=== PATIENT | female | born 1985 | race Caucasian/White ===

== ENCOUNTER 2021-10-19 17:29 | Outpatient (CLI) | payer BC, SELFPAY ==
[2021-10-19 18:05] LABS: Absolute Lymphocyte Count 2.39 X10^3/uL (0.83-4.51); Absolute Neutrophil Count 3.1 X10^3/uL (2.0-7.7); Basophil# 0.08 X10^3/uL; Basophil% 1.3 % (0-1); Eosinophil# 0.13 X10^3/uL; Eosinophils% 2.1 % (0-5); Hematocrit 43.5 % (37-47); Hemoglobin 14.4 g/dL (12.0-15.0); Lymphocyte # 2.39 X10^3/ul (0.83-4.51); Lymphocyte % 39.1 % (19-41); Mean Corp Hgb Conc 33.1 g/dL (32-36); Mean Corpuscular Hgb 29.1 pg (27.0-32.0); Mean Corpuscular Volume 88.1 fL (81-99); Monocyte# 0.39 X10^3/uL; Monocyte% 6.4 % (0-10); NRBC Flagged by Analyzer 0 % (0-5); Neutrophil # 3.11 X10^3/uL (2.7-7.7); Neutrophil % 50.8 % (47-70); Platelet Count 275 K/mm3 (150-450); RBC Distribution Width CV 12.8 % (11.6-14.6); RBC Distribution Width SD 41.3 fl (35.1-43.9); Red Blood Count 4.94 M/mm3 (4.2-5.4); White Blood Count 6.1 K/mm3 (4.4-11.0)
[2021-10-19 18:48] LABS: AST(SGOT) 21 U/L (15-37); Alanine Aminotransfer ALT/SGPT 35 U/L (13-56); Albumin, Serum 4.1 g/dL (3.2-5.0); Alkaline Phosphatase 73 U/L (45-117); Anion Gap 6 (5-15); BUN 17 mg/dL (7-18); BUN/Creat Ratio 22.6 RATIO (10-20); Calcium,Total 9.2 mg/dL (8.5-10.1); Chloride 105 mmol/L (98-107); Cholesterol 208 mg/dL (200); Creatinine, Serum 0.75 mg/dL (0.55-1.02); EST Glomerular Filtration Rate 92 mL/min (>60); Est Glom Filt Rate - Afr Amer 111 mL/min (>60); Globulin 4.2 g/dL (2.2-4.2); Glucose 93 mg/dL (74-106); High Density Lipoprotein 51 mg/dL; Potassium 3.7 mmol/L (3.5-5.1); Protein, Total 8.3 g/dL (6.4-8.2); Sodium Level 138 mmol/L (136-145); Thyroid Stim Hormone (TSH) 1.84 uIU/mL (0.358-3.74); Triglycerides 257 mg/dL; Very Low Density Lipoprotein 51 mg/dL (5-40)
== END 2021-10-19 23:59 | disposition short-term general hospital (02) ==
LOC: LAB 17:36
PROVIDERS: PCP Family Medicine; Referring Provider Family Medicine; Visit Provider Family Medicine
DX: Z00.00 Encounter for general adult medical examination without abnormal findings (principal); E03.9 Hypothyroidism, unspecified
CPT/HCPCS: 36415; 80053; 80061; 84443; 85025

== ENCOUNTER → 2022-10-26 | Outpatient (CLI) | payer BC, SELFPAY ==
[2022-11-01 10:08] LABS: Age Gdln ACOG Testing 30-65 (.)
[2022-11-01 10:51] LABS: HPV APTIMA, High Risk Negative (Negative)
[2022-11-01 17:01] LABS: HPV Reflexed? YES, CHARGE PATIENT
== END | disposition home or self-care (01) ==
PROVIDERS: PCP Family Medicine; Visit Provider Family Medicine
DX: Z12.4 Encounter for screening for malignant neoplasm of cervix (principal)
CPT/HCPCS: 87624; 88175; G0145

== ENCOUNTER → 2022-10-29 | Outpatient (CLI) | payer BC, SELFPAY ==
[2022-10-29 10:41] LABS: ALB/GLOB Ratio 0.8 RATIO (0.9-2.4); AST(SGOT) 21 U/L (15-37); Alanine Aminotransfer ALT/SGPT 33 U/L (13-56); Albumin, Serum 3.6 g/dL (3.2-5.0); Alkaline Phosphatase 81 U/L (45-117); Anion Gap 8 (5-15); BUN 13 mg/dL (7-18); BUN/Creat Ratio 16.9 RATIO (10-20); Chloride 105 mmol/L (98-107); Cholesterol 213 mg/dL (200); Creatinine, Serum 0.77 mg/dL (0.55-1.02); EST Glomerular Filtration Rate 89 mL/min (>60); Est Glom Filt Rate - Afr Amer 107 mL/min (>60); Globulin 4.4 g/dL (2.2-4.2); Glucose 98 mg/dL (74-106); High Density Lipoprotein 48 mg/dL; Potassium 3.9 mmol/L (3.5-5.1); Sodium Level 139 mmol/L (136-145); Thyroid Stim Hormone (TSH) 1.66 uIU/mL (0.358-3.74); Triglycerides 179 mg/dL; Very Low Density Lipoprotein 36 mg/dL (5-40)
== END | disposition home or self-care (01) ==
LOC: LAB 09:23
PROVIDERS: PCP Family Medicine; Visit Provider Family Medicine
DX: Z01.419 Encounter for gynecological examination (general) (routine) without abnormal findings (principal); E03.9 Hypothyroidism, unspecified
CPT/HCPCS: 36415; 80053; 80061; 84443

== ENCOUNTER → 2023-11-02 | Outpatient (CLI) | payer BC, SELFPAY ==
[2023-11-02 12:28] LABS: Absolute Lymphocyte Count 1.83 X10^3/uL (0.83-4.51); Absolute Neutrophil Count 2.8 X10^3/uL (2.0-7.7); Basophil# 0.08 X10^3/uL; Basophil% 1.5 % (0-1); Eosinophil# 0.11 X10^3/uL; Eosinophils% 2.1 % (0-5); Hematocrit 45.4 % (37-47); Hemoglobin 14.8 g/dL (12.0-15.0); Lymphocyte # 1.83 X10^3/ul (0.83-4.51); Lymphocyte % 35.3 % (19-41); Mean Corp Hgb Conc 32.6 g/dL (32-36); Mean Corpuscular Hgb 28.8 pg (27.0-32.0); Mean Corpuscular Volume 88.5 fL (81-99); Mean Platelet Vol. 9.6 fl (6.2-12.0); Monocyte# 0.36 X10^3/uL; Monocyte% 6.9 % (0-10); NRBC Flagged by Analyzer 0 % (0-5); Neutrophil # 2.79 X10^3/uL (2.7-7.7); Neutrophil % 53.8 % (47-70); Platelet Count 286 K/mm3 (150-450); RBC Distribution Width CV 12.9 % (11.6-14.6); RBC Distribution Width SD 42.2 fl (35.1-43.9); Red Blood Count 5.13 M/mm3 (4.2-5.4); White Blood Count 5.2 K/mm3 (4.4-11.0)
[2023-11-02 13:55] LABS: AST(SGOT) 31 U/L (15-37); Alanine Aminotransfer ALT/SGPT 53 U/L (13-56); Alkaline Phosphatase 72 U/L (45-117); Anion Gap 7 (5-15); BUN 18 mg/dL (7-18); BUN/Creat Ratio 23.2 RATIO (10-20); Calcium,Total 9.4 mg/dL (8.5-10.1); Chloride 105 mmol/L (98-107); Cholesterol 207 mg/dL (200); Creatinine, Serum 0.78 mg/dL (0.55-1.02); EST Glomerular Filtration Rate 87 mL/min (>60); Est Glom Filt Rate - Afr Amer 106 mL/min (>60); Globulin 4.2 g/dL (2.2-4.2); Glucose 92 mg/dL (74-106); High Density Lipoprotein 49 mg/dL; Potassium 4.1 mmol/L (3.5-5.1); Protein, Total 8.2 g/dL (6.4-8.2); Sodium Level 136 mmol/L (136-145); Thyroid Stim Hormone (TSH) 1.33 uIU/mL (0.358-3.74); Triglycerides 245 mg/dL; Very Low Density Lipoprotein 49 mg/dL (5-40)
== END | disposition home or self-care (01) ==
LOC: BFHLAB 08:41
PROVIDERS: PCP Family Medicine; Visit Provider Family Medicine
DX: Z00.00 Encounter for general adult medical examination without abnormal findings (principal); E03.9 Hypothyroidism, unspecified; N91.2 Amenorrhea, unspecified; E78.1 Pure hyperglyceridemia
CPT/HCPCS: 36415; 80053; 80061; 84443; 85025

== ENCOUNTER → 2024-01-03 | Outpatient (CLI) | payer BC, SELFPAY ==
--- NOTE | 2024-01-03 07:00 | BI_ITS ---
MAMMOGRAPHY - BILATERAL SCREENING REASON FOR EXAM: Female, 38 years old. Routine annual screening examination. PERTINENT HISTORY: Non-contributory. TECHNIQUE: Digital bilateral breast blanca (3D mammographic acquisition) in the CC and MLO projections. 2-D mediolateral oblique (MLO) and craniocaudad (CC) views of both breasts were obtained. CAD: Full Field Digital Mammography with Computer Added Detection was performed. COMPARISON: None. Baseline examination. FINDINGS: Breast Composition: The breasts are almost entirely fatty. There are no dominant masses or suspicious calcifications. No other significant abnormalities are identified. BI/SCRN MAMM (CAD)W/BLANCA BILAT IMPRESSION: Negative screening mammogram. Yearly followup mammogram recommended. (A) ASSESSMENT CATEGORY: BIRADS Category 1: Negative. A letter regarding these results will be sent to the patient by the facility within 30 days. Approximately 10% of breast cancers are not detected by mammography. A normal mammogram should not delay biopsy of a clinically suspicious abnormality. [id number] Electronically Signed: Luiz Gonzalez MD at 10:02 EDT ,
== END | disposition home or self-care (01) ==
LOC: OPBI 06:56
PROVIDERS: PCP Family Medicine; Referring Provider Family Medicine; Visit Provider Family Medicine
DX: Z12.31 Encounter for screening mammogram for malignant neoplasm of breast (principal)
CPT/HCPCS: 77063; 77067

== ENCOUNTER → 2024-12-14 | Outpatient (CLI) | payer BC, SELFPAY ==
[2024-12-14 07:33] LABS: Absolute Lymphocyte Count 2.09 X10^3/uL (0.83-4.51); Absolute Neutrophil Count 3.4 X10^3/uL (2.0-7.7); Basophil# 0.08 X10^3/uL; Basophil% 1.3 % (0-1); Eosinophil# 0.14 X10^3/uL; Eosinophils% 2.3 % (0-5); Hematocrit 44.8 % (37-47); Hemoglobin 15.4 g/dL (12.0-15.0); Lymphocyte # 2.09 X10^3/ul (0.83-4.51); Lymphocyte % 33.9 % (19-41); Mean Corp Hgb Conc 34.4 g/dL (32-36); Mean Corpuscular Hgb 30.2 pg (27.0-32.0); Mean Corpuscular Volume 87.8 fL (81-99); Mean Platelet Vol. 8.9 fl (6.2-12.0); Monocyte# 0.48 X10^3/uL; Monocyte% 7.8 % (0-10); NRBC Flagged by Analyzer 0 % (0-5); Neutrophil # 3.37 X10^3/uL (2.7-7.7); Neutrophil % 54.5 % (47-70); Platelet Count 277 K/mm3 (150-450); RBC Distribution Width CV 12.3 % (11.6-14.6); RBC Distribution Width SD 39.8 fl (35.1-43.9); White Blood Count 6.2 K/mm3 (4.4-11.0)
[2024-12-14 08:41] LABS: ALB/GLOB Ratio 1.4 RATIO (0.9-2.4); AST(SGOT) 21 U/L (<=31); Alanine Aminotransfer ALT/SGPT 15 U/L (<=34); Albumin, Serum 4.4 g/dL (3.5-5.0); Alkaline Phosphatase 79 U/L (35-104); Anion Gap 13 (5-15); BUN 17 mg/dL (4-19); BUN/Creat Ratio 21.9 RATIO (10-20); Calcium,Total 9.6 mg/dL (7.6-11.0); Carbon Dioxide 23.7 mmol/L (21.0-32.0); Chloride 103 mmol/L (98-108); Cholesterol 189 mg/dL (<=200); Creatinine, Serum 0.78 mg/dL (0.70-1.20); EST Glomerular Filtration Rate 98 (>60); Globulin 3.2 g/dL (2.2-4.2); Glucose 89 mg/dL (70-99); High Density Lipoprotein 46 mg/dL; Low Density Lipoprotein Calc. 104 mg/dL; Potassium 4.1 mmol/L (3.3-5.1); Protein, Total 7.6 g/dL (5.9-8.4); Sodium Level 139 mmol/L (133-145); Total Bilirubin 0.37 mg/dL (0.00-1.30); Triglycerides 194 mg/dL; Very Low Density Lipoprotein 39 mg/dL (5-40); cholesterol:hdl ratio screen 4.07
== END | disposition home or self-care (01) ==
LOC: LAB.FUTURE 07:17 → LAB 07:25
PROVIDERS: PCP Family Medicine; Visit Provider Family Medicine
DX: Z00.00 Encounter for general adult medical examination without abnormal findings (principal); E03.9 Hypothyroidism, unspecified; N91.2 Amenorrhea, unspecified; E78.1 Pure hyperglyceridemia
CPT/HCPCS: 36415; 80053; 80061; 84443; 85025

== ENCOUNTER → 2025-02-28 | Outpatient (CLI) | payer BC, SELFPAY ==
--- NOTE | 2025-02-28 07:10 | BI_ITS ---
EXAM: SCRN MAMM (CAD)W/BLANCA BILAT 02/28/2025 CLINICAL HISTORY: F, Age 39 y/o , SCREENING TECHNIQUE: Bilateral screening digital breast tomosynthesis with 2D and 3D images. Computer aided detection. COMPARISON: Prior exam(s) dated 01/03/2024. FINDINGS: TISSUE DENSITY: The breast tissue is almost entirely fatty. Bilateral Breast Mammographic Findings: No significant masses, calcifications or other abnormalities are identified. BI/SCRN MAMM (CAD)W/BLANCA BILAT IMPRESSION: Right Breast: BIRADS 1 NEGATIVE. Left Breast: BIRADS 1 NEGATIVE. OVERALL FINAL ASSESSMENT: BIRADS 1 NEGATIVE. RECOMMENDATION: Routine annual follow-up in 1 Year A letter with findings and recommendations will be mailed to the patient. Reading Location: [id number]
--- OUTSIDE RECORDS SUMMARY | 2025-02-28 07:10 | XMS RPT_ITS | CCD ---
Author Organization [facility] CliniSyar Care Team Providers Care Granite Polisher Machine Name Role Phone Agueda Johnson Unavailable Tristan Clarke Unavailable Unavaildylan e Agueda Johnson Unavailable Edmund, Dr. Agueda Mohan Primary Care Unavai lable SIPPEGaby, GLORIA Attending Unavailable Miedel, Dr. Agueda Mohan Referring Unavai lable SIPPEY, GLORIA Attending Unavailable Miedel, Dr. Agueda Mohan Referring Unavai lable Miedel, Dr. Agueda Mohan Primary Care Unavai lable SIPPEY, GLORIA Attending Unavailable Miedel, Dr. Agueda Mohan Referring Unavai lable Miedel, Dr. Agueda Mohan Primary Care Unavai lable Minury, Dr. Agueda Mohan Primary Care Unavai lable Sippey, Dr. Cai Attending Unavailable Sippey, Dr. Cai Referring Unavailable Miedel, Dr. Agueda Mohan Primary Care Unavai labspike Clarke, Dr. Tristan Sahu Attending Unav ailable Sippey, Dr. Cai Admitting Unavailable Sippey, Dr. Cai Attending Unavailable Sippey, Dr. Cai Referring Unavailable Miedel, Dr. Agueda Mohan Primary Care Rosa Johnson MD, Agueda Mohan Primary Care Provider AGUEDA JOHNSON Primary Care Unavailabl TIM Wilson Attending Unavailable Edmund MARS, Dr. Romeo Primary Care Provider Edmund MARS, Dr. Romeo Attending Provider [phone] Agueda Johnson Attending Unavailable Agueda Johnson Primary Care Unavailable gAueda Johnson Referring Unavailable Agueda Johnson Attending Unavailable Agueda Johnson Primary Care Unavailable Medications Current Medications Medication Drug Class(es) Dates Sig (Normalized) Sig (Original) dicyclomine hydrochloride 20 mg oral tablet (1 source) Anticholinergic Start: 04-04-20 End: 05-03-20 22 take 1 tablet by mouth four times daily dicyclomine 20 mg oral tablet ; 1 tab(s) orally 4 times a day Quantity: 20 Refills: 0 Ordered: 04-Apr-2022 Tristan Clarke Start: 04-Apr-2022 End: 03-May-2022 Generic Substitution Allowed Comments: May cause drowsiness. Alcohol may intensify this effect. Use care when operating dangerous machinery. Comment on above: May cause drowsiness . Alcohol may intensify this effect. Use care when operating dangerous machinery. methylPREDNISolone (1 source) Corticosteroid Start: 08-12-20 methylPREDNISolone (Medrol Dospak) 4 mg tablets Indications: Acute upper respiratory infection Take as directed on package. 21 tablet 08/12/2024 Active ondansetron 4 mg disintegrating oral tablet (1 source) Serotonin-3 Receptor Antagonist Start: 04-04-20 take 1 tablet by mouth three times daily ondansetron 4 mg oral tablet, disintegrating ; 1 tab(s) orally 3 times a day Quantity: 15 Refills: 0 Ordered: 04-Apr-2022 Tristan Clarke Start: 04-Apr-2022 Generic Substitution Allowed Completed/Discontinued Medications Medication Drug Class(es) Dates Sig (Normalized) Sig (Original) levothyroxine sodium 0.075 mg oral tablet (8 sources) l-Thyroxine Start: 04-10-2022 Levothyroxine Sodium 75 MCG Oral Tablet Quantity: 90 Refills: 0 Ordered: 10-Apr-2022 DO Start : 10-Apr-2022 Active take 1 tablet by mouth once guy y levothyroxine (Synthroid, Levoxyl) 75 mcg tablet Take 1 tablet (75 mcg) by mouth once daily. take on an empty stomach Active take 1 tablet by mouth once guy y Synthroid 50 mcg (0.05 mg) oral tablet ; 1 tab(s) orally once a day Quantity: 0 Refills: 0 Ordered: 04-Apr-2022 Leila Younger Generic Substitution Allowed Problems Active Problems Problem Classification Problem Date Documented Da te Episodic/Chronic Other liver diseases (1 source) Fatty (change of) liver, not elsewhere classified; Translations: [Fatty (change of) liver, not elsewhere classified] Onset: 06-01-2022 Chronic Other nutritional; endocrine; and metabolic disorders (1 source) Morbid (severe) obesity due to excess calories; Translations: [Morbid (severe) obesity due to excess calories] Onset: 06-01-2022 Chronic Other nutritional; endocrine; and metabolic disorders (1 source) Body mass index (BMI) 40.0-44.9, adult; Translations: [Body mass index [BMI] 40.0-44.9, adult] Onset: 06-01-2022 Chronic Other nutritional; endocrine; and metabolic disorders (6 sources) H/O: hypothyroidism; Translations: [Personal history of other endocrine, metabolic, and immunity disorders] Episodic Other screening for suspected conditions (not mental disorders or infectious disease) (1 source) Encounter for screening mammogram for malignant neoplasm of breast; Translations: [Encounter for screening mammogram for malignant neoplasm of breast] Onset: 02-25-2025 Episodic Other upper respiratory infections (6 sources) Sore throat symptom; Translations: [Acute pharyngitis, unspecified] Onset: 08-12-2024 08-12-2024 Episodic Thyroid disorders (1 source) Hypothyroidism, unspecified; Translations: [Hypothyroidism, unspecified] Onset: 06-01-2022 Chronic Unclassified (2 sources) ABD PAIN N/V 04-04-2022 Comment on above: ABD PAIN N/V Past or Other Problems Problem Classification Problem Date Documented Da te Episodic/Chronic Abdominal pain (12 sources) Abdominal pain; Translations: [Abdominal pain, unspecified site] Onset: 04-04-2022 04-04-2022 Episodic Biliary tract disease (9 sources) Biliary calculus; Translations: [Calculus of gallbladder without mention of cholecystitis, without mention of obstruction] Onset: 04-13-2022 Episodic Nausea and vomiting (2 sources) Nausea with vomiting, unspecified; Translations: [Nausea with vomiting, unspecified] Onset: 04-04-2022 Episodic Other aftercare (1 source) nursing home (current) use of opiate analgesic; Translations: [nursing home (current) use of opiate analgesic] Onset: 06-01-2022 Episodic Other aftercare (1 source) Other [facility] (current) drug therapy; Translations: [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] Onset: 04-04-2022 Episodic Results Test Name Value Interpretation Reference Range Facility Absolute neutrophil countOrd ered By: Agueda Johnson on 12-14-2024 Neutrophils (Bld) [#/Vol] 3.4 10*3/uL 2.0-7.7 [facility] Anion gap in Serum or Plasma Ordered By: Agueda Johnson on 12-14-2024 Anion gap [Moles/Vol] 13 mmol/L 5-15 [facility] BUN/creatinine ratioOrdered By: Agueda Johnson on 12-14-2024 Urea nitrogen/Creatinine [Mass ratio] 21.9 mg/mg High 10-20 [facility] Basophil percentageOrdered B y: Agueda Johnson on 12-14-2024 Basophils/100 WBC (Bld) 1.3 % High 0-1 [facility] Bilirubin, totalOrdered By: Agueda Johnson on 12-14-2024 Bilirubin [Mass/Vol] 0.37 mg/dL 0.00-1.[address] [facility] CBC W/Diff, Automatedon 11-24 Absolute Lymph 2.09 X10 3/uL Normal 0.83-4.51 [facility] Comment on above: Performed By: #### L [id number], L501.9520, L500.4100, L100.0100 #### [facility] [address] [place], [address] Absolute Neut 3.4 X10 3/uL Normal 2.0-7.7 [facility] Comment on above: Performed By: #### L [id number], L501.9520, L500.4100, L100.0100 #### [facility] [address] [place], [address] Basophils/100 WBC (Bld) 1.3 % High 0-1 [facility] Comment on above: Performed By: #### L [id number], [id number], L500.4100, L100.0100 #### [facility] [address], [address] Eosinophils/100 WBC (Bld) 2.3 % Normal 0-5 [facility] Comment on above: Performed By: #### L [id number], [id number], L500.4100, L100.0100 #### [facility] [address] [place], [address] Erythrocyte distribution width (RBC) [Ratio] 12.3 % Normal 11.6-14.6 [facility] Comment on above: Performed By: #### L [id number], [id number], L500.4100, L100.0100 #### [facility] [address] [place], [address] Hematocrit (Bld) [Volume fraction] 44.8 % Normal 37-47 [facility] Comment on above: Performed By: #### L [id number], [id number], L500.4100, L100.0100 #### [facility] [address] [place], [address] Hemoglobin (Bld) [Mass/Vol] 15.4 g/dL High 12.0-15.0 [facility] Comment on above: Performed By: #### L [id number], [id number], L500.4100, L100.0100 #### [facility] [address] [place], [address] IG% 0.200 Normal 0.0-0.9 [facility] Comment on above: Result Comment: IG% - Immature Granulocytes (promyelocytes, myelocytes and metamyelocytes) > 1% indicates that a LEFT SHIFT is Present. Performed By: #### L [id number], [id number], L500.4100, L100.0100 #### [facility] [address] [place], [address] Lymphocytes/100 WBC (Bld) 33.9 % Normal 19-41 [facility] Comment on above: Performed By: #### L 500.4050, [id number], L500.4100, L100.0100 #### [facility] [address] [place], [address] MCH (RBC) [Entitic mass] 30.2 pg Normal 27.0-32.0 [facility] Comment on above: Performed By: #### L 500.4050, [id number], L500.4100, L100.0100 #### [facility] [address] [place], [address] MCHC (RBC) [Mass/Vol] 34.4 g/dL Normal 32-36 [facility] Comment on above: Performed By: #### L 500.4050, [id number], L500.4100, L100.0100 #### [facility] [address] [place], [address] MCV (RBC) [Entitic vol] 87.8 fL Normal 81-99 [facility] Comment on above: Performed By: #### L 500.4050, [id number], L500.4100, L100.0100 #### [facility] [address] [place], [address] Monocytes/100 WBC (Bld) 7.8 % Normal 0-10 [facility] Comment on above: Performed By: #### L 500.4050, [id number], L500.4100, L100.0100 #### [facility] [address] [place], [address] Neutrophils/100 WBC (Bld) 54.5 % Normal 47-70 [facility] Comment on above: Performed By: #### L 500.4050, [id number], L500.4100, L100.0100 #### [facility] [address] [place], [address] Nucleated RBC (Bld) [#/Vol] 0 10*3/uL Normal 0-5 [facility] Comment on above: Performed By: #### L 500.4050, [id number], L500.4100, L100.0100 #### [facility] [address] [place], [address] Platelet mean volume (Bld) [Entitic vol] 8.9 fL Normal 6.2-12.0 [facility] Comment on above: Performed By: #### L 500.4050, [id number], L500.4100, L100.0100 #### [facility] [address] [place], [address] Platelets (Bld) [#/Vol] 277 10*3/uL Normal 150-450 [facility] Comment on above: Performed By: #### L 500.4050, [id number], L500.4100, L100.0100 #### [facility] [address] [place], [address] RBC (Bld) [#/Vol] 5.10 10*6/uL Normal 4.2-5.4 [facility] Comment on above: Performed By: #### L 500.4050, [id number], L500.4100, L100.0100 #### [facility] [address] [place], [address] RDW SD 39.8 fl Normal 35.1-43.9 [facility] Comment on above: Performed By: #### L 500.4050, [id number], L500.4100, L100.0100 #### [facility] [address] [place], [address] WBC (Bld) [#/Vol] 6.2 10*3/uL Normal 4.4-11.0 [facility] Comment on above: Performed By: #### L 500.4050, [id number], L500.4100, L100.0100 #### [facility] [address] [place], [address] Calculated very low density lipoprotein (VLDL) cholesterol measurementOrdered By: Agueda Johnson on 12-14-2024 VLDL Cholesterol 39 mg/dL 5-40 [facility] Carbon dioxide, total [Moles /volume] in Central venous bloodOrdered By: Agueda Johnson on 12-14-2024 CO2 [Moles/Vol] 23.7 mmol/L 21.0-32.0 [facility] Chloride assayOrdered By: Sajan Johnson on 12-14-2024 Chloride [Moles/Vol] 103 mmol/L 98-[address] [facility] Comprehensive Metabolic Prof ilon 12-14-2024 Albumin [Mass/Vol] 4.4 g/dL Normal 3.5-5.0 [facility] Comment on above: Performed By: #### L 500.4050, [id number], L500.4100, L100.0100 #### [facility] [address] [place], [address] Albumin/Globulin [Mass ratio] 1.4 {ratio} Normal 0.9-2.4 [facility] Comment on above: Performed By: #### L 500.4050, [id number], L500.4100, L100.0100 #### [facility] [address] [place], [address] ALK PHOS 79 U/L Normal 35-104 [facility] Comment on above: Performed By: #### L 500.4050, [id number], L500.4100, L100.0100 #### [facility] [address] [place], [address] ALT [Catalytic activity/Vol] 15 U/L Normal <=34 [facility] Comment on above: Performed By: #### L 500.4050, [id number], L500.4100, L100.0100 #### [facility] [address] [place], [address] AST [Catalytic activity/Vol] 21 U/L Normal <=31 [facility] Comment on above: Performed By: #### L 500.4050, [id number], L500.4100, L100.0100 #### [facility] [address] [place], [address] Bilirubin [Mass/Vol] 0.37 mg/dL Normal 0.00-1.[address] [facility] Comment on above: Performed By: #### L 500.4050, [id number], L500.4100, L100.0100 #### [facility] [address] [place], [address] BUN/CRE 21.9 RATIO High 10-20 [facility] Comment on above: Performed By: #### L 500.4050, [id number], L500.4100, L100.0100 #### [facility] [address] [place], [address] Calcium [Mass/Vol] 9.6 mg/dL Normal 7.6-11.0 [facility] Comment on above: Performed By: #### L 500.4050, [id number], L500.4100, L100.0100 #### [facility] [address] [place], [address] Chloride [Moles/Vol] 103 mmol/L Normal 98-[address] [facility] Comment on above: Performed By: #### L 500.4050, [id number], L500.4100, L100.0100 #### [facility] [address] [place], [address] CO2 [Moles/Vol] 23.7 mmol/L Normal 21.0-32.0 [facility] Comment on above: Performed By: #### L 500.4050, [id number], L500.4100, L100.0100 #### [facility] [address] [place], [address] Creatinine [Mass/Vol] 0.78 mg/dL Normal 0.70-1.20 [facility] Comment on above: Performed By: #### L 500.4050, [id number], L500.4100, L100.0100 #### [facility] [address] [place], [address] GAP 13 Normal 5-15 [facility] Comment on above: Performed By: #### L 500.4050, [id number], L500.4100, L100.0100 #### [facility] [address] [place], [address] GFR/1.73 sq M.predicted among non-blacks MDRD (S/P/Bld) [Vol rate/Area] 98 mL/min/{1.73_m2} Normal >60 [facility] Comment on above: Result Comment: mL/m in/1.73m2 CKD-EPI Creatinine Equation (2020) Performed By: #### L 500.4050, [id number], L500.4100, L100.0100 #### [facility] [address] [place], [address] Globulin (S) [Mass/Vol] 3.2 g/dL Normal 2.2-4.2 [facility] Comment on above: Performed By: #### L 500.4050, [id number], L500.4100, L100.0100 #### [facility] [address] [place], [address] Glucose [Mass/Vol] 89 mg/dL Normal 70-99 [facility] Comment on above: Performed By: #### L 500.4050, [id number], L500.4100, L100.0100 #### [facility] [address] [place], [address] Potassium [Moles/Vol] 4.1 mmol/L Normal 3.3-5.1 [facility] Comment on above: Performed By: #### L 500.4050, [id number], L500.4100, L100.0100 #### [facility] [address] [place], [address] Sodium [Moles/Vol] 139 mmol/L Normal 133-145 [facility] Comment on above: Performed By: #### L 500.4050, [id number], L500.4100, L100.0100 #### [facility] [address] [place], [address] T PROT 7.6 g/dL Normal 5.9-8.4 [facility] Comment on above: Performed By: #### L 500.4050, [id number], L500.4100, L100.0100 #### [facility] [address] [place], [address] Urea nitrogen [Mass/Vol] 17 mg/dL Normal 4-19 [facility] Comment on above: Performed By: #### L 500.4050, [id number], L500.4100, L100.0100 #### [facility] [address] [place], [address] Eosinophil percentageOrdered By: Agueda Johnson on 12-14-2024 Eosinophils/100 WBC (Bld) 2.3 % 0-5 [facility] Erythrocyte distribution wid th ratioOrdered By: Agueda Johnson on 12-14-2024 Erythrocyte distribution width (RBC) [Ratio] 12.3 % 11.6-14.6 [facility] Erythrocyte distribution wid th standard deviationOrdered By: Agueda Johnson on 12-14-2024 Erythrocyte distribution width (RBC) [Entitic vol] 39.8 fL 35.1-43.9 [facility] GFR/1.73 sq M.predicted rey g non-blacks MDRD (S/P/Bld) [Vol rate/Area]Ordered By: Agueda Johnson on 12-14-2024 Estimated GFR (MDRD) Non-Af Amer 98 >60 [facility] Comment on above: mL/min/1.73m2 CKD-EP I Creatinine Equation (2020) Hematocrit Auto (Bld) [Volum e fraction]Ordered By: Agueda Johnson on 12-14-2024 Hematocrit (Bld) [Volume fraction] 44.8 % 37-47 [facility] Hemoglobin measurementOrdere d By: Agueda Johnson on 12-14-2024 Hemoglobin (Bld) [Mass/Vol] 15.4 g/dL High 12.0-15.0 [facility] Immature granulocytes/100 WB C Auto (Bld)Ordered By: Agueda Johnson on 12-14-2024 Immature granulocytes/100 WBC (Bld) 0.200 % 0.0-0.9 [facility] Comment on above: IG% - Immature Granu locytes (promyelocytes, myelocytes and metamyelocytes) > 1% indicates that a LEFT SHIFT is Present. LDL calc ser/plasOrdered By: Agueda Johnson on 12-14-2024 LDL Cholesterol, Calculated 104 mg/dL [facility] Comment on above: Syojxyupkz=522-024 m g/dL & Higher Bkzi=319 mg/dL or greater Laboratory - Chemistry and C hemistry - challengeOrdered By: Agueda Johnson on 12-14-2024 AST [Catalytic activity/Vol] 21 U/L <32 [facility] Lipid Profileon 12-14-2024 CHOL:HDL 4.07 Normal [facility] Comment on above: Performed By: #### L 500.4050, L501.9520, L500.4100, L100.0100 #### [facility] [address] [place], [address] Cholesterol [Mass/Vol] 189 mg/dL Normal <=200 [facility] Comment on above: Result Comment: Chol esterol level, Desirable <200 mg/dL Borderline high cholesterol 200-239 mg/dL High cholesterol >=240 mg/dL Recommendations of the NCEP Adult Treatment Panel for the following risk-cutoff thresholds for the [place] population. Performed By: #### L 500.4050, L501.9520, L500.4100, L100.0100 #### [facility] [address] [place], [address] Cholesterol in HDL [Mass/Vol] 46 mg/dL Normal [facility] Comment on above: Result Comment: [place] onal Cholesterol Education Program (NCEP) guidelines: <40 mg/dL: Low HDL-cholesterol (major risk factor for CHD) >= 60 mg/dL: High HDL-cholesterol (negative risk factor for CHD) HDL-cholesterol is affected by a number of factors, e.g. smoking, exercise, hormones, sex and age. Performed By: #### L 500.4050, L501.9520, L500.4100, L100.0100 #### [facility] [address] [place], [address] Cholesterol in LDL [Mass/Vol] 104 mg/dL Normal [facility] Comment on above: Result Comment: Bord bvtszi=706-107 mg/dL Higher Ebhw=280 mg/dL or greater Performed By: #### L 500.4050, [id number], L500.4100, L100.0100 #### [facility] [address] [place], [address] Cholesterol in VLDL [Mass/Vol] 39 mg/dL Normal 5-40 [facility] Comment on above: Performed By: #### L 500.4050, [id number], L500.4100, L100.0100 #### [facility] [address] [place], [address] Triglyceride [Mass/Vol] 194 mg/dL Normal [facility] Comment on above: Result Comment: The drugs N-Acetylcysteine and Metamizole may falsely depress this assay. Normal range: <150 mg/dL Borderline High: 150-199 mg/dL High: 200-499 mg/dL Very High: >500 mg/dL Performed By: #### L 500.4050, L501.9520, L500.4100, L100.0100 #### [facility] [address] [place], [address] Lymphocytes Auto (Unsp spec) [#/Vol]Ordered By: Agueda Johnson on 12-14-2024 Lymphocytes (Bld) [#/Vol] 2.09 10*3/uL 0.83-4.51 [facility] Lymphocytes/100 WBC Auto (Un sp spec)Ordered By: Agueda Johnson on 12-14-2024 Lymphocytes/100 WBC (Bld) 33.9 % 19-41 [facility] MCV (mean corpuscular volume ) determinationOrdered By: Agueda Johnson on 12-14-2024 MCV (RBC) [Entitic vol] 87.8 fL 81-99 [facility] Mean corpuscular hemoglobin (MCH) determinationOrdered By: Agueda Johnson on 12-14-2024 MCH (RBC) [Entitic mass] 30.2 pg 27.0-32.0 [facility] Mean corpuscular hemoglobin concentration (MCHC) determinationOrdered By: Agueda Johnson on 12-14-2024 MCHC (RBC) [Mass/Vol] 34.4 g/dL 32-36 [facility] Mean platelet volume determi nationOrdered By: Agueda Johsnon on 12-14-2024 Platelet mean volume (Bld) [Entitic vol] 8.9 fL 6.2-12.0 [facility] Monocyte percentageOrdered B y: Agueda Johnson on 12-14-2024 Monocytes/100 WBC (Bld) 7.8 % 0-10 [facility] Neutrophil percentageOrdered By: Agueda Johnson on 12-14-2024 Neutrophils/100 WBC (Bld) 54.5 % 47-70 [facility] Nucleated red blood cell per centageOrdered By: Agueda Johnson on 12-14-2024 Nucleated RBC/100 WBC (Bld) [Ratio] 0 % 0-5 [facility] Platelet countOrdered By: Sajan Johnson on 12-14-2024 Platelets (Bld) [#/Vol] 277 10*3/uL 150-450 [facility] Potassium (Unsp spec) [Mass/ Vol]Ordered By: Agueda Johnson on 12-14-2024 Potassium [Moles/Vol] 4.1 mmol/L 3.3-5.1 [facility] RBC Auto (Bld) [#/Vol]Ordere d By: Agueda Johnson on 12-14-2024 RBC (Bld) [#/Vol] 5.10 10*6/uL 4.2-5.4 [facility] Screening total cholesterol/ high density lipoprotein (HDL) cholesterol ratioOrdered By: Agueda Johnson on 12-14-2024 Cholesterol.total/Chol esterol in HDL [Mass ratio] 4.07 {ratio} [facility] Serum creatinine measurement (mass/volume)Ordered By: Agueda Johnson on 12-14-2024 Creatinine [Mass/Vol] 0.78 mg/dL 0.70-1.20 [facility] Serum globulin measurementOr dered By: Agueda Johnson on 12-14-2024 Globulin (S) [Mass/Vol] 3.2 g/dL 2.2-4.2 [facility] Serum glucose measurement (m ass/volume)Ordered By: Agueda Johnson on 12-14-2024 Glucose [Mass/Vol] 89 mg/dL 70-99 [facility] Serum or plasma alanine jorgensen otransferase (ALT) measurementOrdered By: Agueda Johnson on 12-14-2024 ALT [Catalytic activity/Vol] 15 U/L <35 [facility] Serum or plasma albumin kim urement (mass/volume)Ordered By: Agueda Johnson on 12-14-2024 Albumin [Mass/Vol] 4.4 g/dL 3.5-5.0 [facility] Serum or plasma albumin/glob ulin mass ratioOrdered By: Agueda Johnson on 12-14-2024 Albumin/Globulin [Mass ratio] 1.4 {ratio} 0.9-2.4 [facility] Serum or plasma alkaline kisha sphatase measurementOrdered By: Agueda Johnson on 12-14-2024 ALP [Catalytic activity/Vol] 79 U/L 35-104 [facility] Serum or plasma calcium kim urement (mass/volume)Ordered By: Agueda Johnson on 12-14-2024 Calcium [Mass/Vol] 9.6 mg/dL 7.6-11.0 [facility] Serum or plasma cholesterol in HDL measurement (mass/volume)Ordered By: Agueda Johnson on 12-14-2024 Cholesterol in HDL [Mass/Vol] 46 mg/dL >40 [facility] Comment on above: National Cholesterol Education Program (NCEP) guidelines:<40 mg/dL: Low HDL-cholesterol (major risk factor for CHD)>= 60 mg/dL: High HDL-cholesterol (negative risk factor for CHD)HDL-cholesterol is affected by a number of factors, e.g. smoking, exercise, hormones, sex and age. Serum or plasma cholesterol measurement (mass/volume)Ordered By: Agueda Johnson on 12-14-2024 Cholesterol [Mass/Vol] 189 mg/dL <201 [facility] Comment on above: Cholesterol level, D esirable <200 mg/dLBorderline high cholesterol 200-239 mg/dLHigh cholesterol >=240 mg/dLRecommendations of the NCEP Adult Treatment Panel for the following risk-cutoff thresholds for the [place] population. Serum or plasma urea nitroge n measurement (mass/volume)Ordered By: Agueda Johnson on 12-14-2024 Urea nitrogen [Mass/Vol] 17 mg/dL 4-19 [facility] Sodium levelOrdered By: Caroline Johnson on 12-14-2024 Sodium [Moles/Vol] 139 mmol/L 133-145 [facility] TSH DL <= 0.005 mIU/L QnOrde red By: Agueda Johnson on 12-14-2024 Thyroid Stimulating Hormone (TSH) 1.180 uIU/mL 0.300-4.200 [facility] Thyroid Stim Hormone (TSH)on 12-14-2024 TSH 1.180 uIU/mL Normal 0.300-4.200 [facility] Comment on above: Performed By: #### L 500.4050, L501.9520, L500.4100, L100.0100 #### [facility] [place], [address] Total proteinOrdered By: Vu Johnson on 12-14-2024 Protein [Mass/Vol] 7.6 g/dL 5.9-8.4 [facility] Triglycerides measurementOrd ered By: Agueda Johnson on 12-14-2024 Triglyceride [Mass/Vol] 194 mg/dL <199 [facility] [facility] Comment on above: The drugs N-Acetylcy steine and Metamizole may falsely depress this assay. Normal range: <150 mg/dLBorderline High: 150-199 mg/dLHigh: 200-499 mg/dLVery High: >500 mg/dL White blood cell (WBC) count Ordered By: Agueda Johnson on 12-14-2024 WBC (Bld) [#/Vol] 6.2 10*3/uL 4.4-11.0 [facility] POCT Group A Streptococcus, PCR manually resultedon 08-12-2024 S. pyogenes DNA GAUDENCIO+probe Ql (Throat) Not detected Not Detected [facility] Work Phone: [facility] Work Phone: Absolute lymphocyte countOrd ered By: Agueda Johnson on 11-02-2023 Lymphocytes Auto (Unsp spec) [#/Vol] 1.83 10*3/uL 0.83-4.51 [facility] Automated lymphocyte count a s percentage of total leukocytesOrdered By: Agueda Johnson on 11-02-2023 Lymphocytes/100 WBC Auto (Unsp spec) 35.3 % 19-41 [facility] Basophil percentageOrdered B y: Agueda Johnson on 11-02-2023 Basophils/100 WBC (Bld) 1.5 % 0-1 [facility] Bilirubin [Mass/Vol] 0.50 mg/dL 0.20-1.[address] [facility] Comment on above: For patients on eltr ombopag therapy, use of Dimension [place] TBIL is not recommended. Chloride [Moles/Vol] 105 mmol/L 98-[address] [facility] Cholesterol [Mass/Vol] 207 mg/dL <200 [facility] Comment on above: <200 mg/dL Desirable 200-240 mg/dL Borderline >240 mg/dL High Risk Eosinophils/100 WBC (Bld) 2.1 % 0-5 [facility] Glucose [Mass/Vol] 92 mg/dL 74-106 [facility] Hemoglobin (Bld) [Mass/Vol] 14.8 g/dL 12.0-15.0 [facility] Monocytes/100 WBC (Bld) 6.9 % 0-10 [facility] Neutrophils (Bld) [#/Vol] 2.8 10*3/uL 2.0-7.7 [facility] Neutrophils/100 WBC (Bld) 53.8 % 47-70 [facility] Potassium [Moles/Vol] 4.1 mmol/L 3.5-5.1 [facility] Comment on above: Slight Hemolysis, Re sult may be falsely increased. Protein [Mass/Vol] 8.2 g/dL 6.4-8.2 [facility] Sodium [Moles/Vol] 136 mmol/L 136-145 [facility] Triglyceride [Mass/Vol] 245 mg/dL <199 [facility] Comment on above: The drugs N-Acetylcy steine and Metamizole may falsely depress this assay.Serum Triglycerides Reference Interval Normal <150 mg/dL Borderline high 150 - 199 mg/dL High 200 - 499 mg/dL Very High > or = 500 mg/dL WBC (Bld) [#/Vol] 5.2 10*3/uL 4.4-11.0 [facility] Determination of erythrocyte mean corpuscular volume (MCV)Ordered By: Agueda Johnson on 11-02-2023 MCV (RBC) [Entitic vol] 88.5 fL 81-99 [facility] Erythrocyte distribution wid th ratioOrdered By: Agueda Johnson on 11-02-2023 Erythrocyte distribution width (RBC) [Ratio] 12.9 % 11.6-14.6 [facility] Erythrocyte distribution wid th standard deviationOrdered By: Agueda Johnson on 11-02-2023 Erythrocyte distribution width (RBC) [Entitic vol] 42.2 fL 35.1-43.9 [facility] Hematocrit Auto (Bld) [Volum e fraction]Ordered By: Agueda Johnson on 11-02-2023 Hematocrit (Bld) [Volume fraction] 45.4 % 37-47 [facility] Immature granulocytes/100 WB C Auto (Bld)Ordered By: Agueda Johnson on 11-02-2023 Immature granulocytes/100 WBC (Bld) 0.400 % 0.0-0.9 [facility] Comment on above: IG% - Immature Granu locytes (promyelocytes, myelocytes and metamyelocytes) > 1% indicates that a LEFT SHIFT is Present. Laboratory - Chemistry and C hemistry - challengeOrdered By: Agueda Johnson on 11-02-2023 Albumin/Globulin [Mass ratio] 1.0 {ratio} 0.9-2.4 [facility] ALP [Catalytic activity/Vol] 72 U/L 45-117 [facility] ALT [Catalytic activity/Vol] 53 U/L 13-56 [facility] Cholesterol in HDL [Mass/Vol] 49 mg/dL >40 [facility] Comment on above: The drugs N-Acetylcy steine and Metamizole may falsely depress this assay. Reference Range HDL <40 mg/dL Low HDL Cholesterol HDL >or= 60 mg/dL High HDL Cholesterol Cholesterol in LDL [Mass/Vol] 109 mg/dL 0-130 [facility] CO2 [Moles/Vol] 24.0 mmol/L 21.0-32.0 [facility] Globulin (S) [Mass/Vol] 4.2 g/dL 2.2-4.2 [facility] Urea nitrogen/Creatinine [Mass ratio] 23.2 mg/mg 10-20 [facility] Laboratory - Hematology and Cell countsOrdered By: Agueda Johnson on 11-02-2023 MCH (RBC) [Entitic mass] 28.8 pg 27.0-32.0 [facility] MCHC (RBC) [Mass/Vol] 32.6 g/dL 32-36 [facility] Nucleated RBC/100 WBC (Bld) [Ratio] 0 % 0-5 [facility] Platelet mean volume (Bld) [Entitic vol] 9.6 fL 6.2-12.0 [facility] Platelets (Bld) [#/Vol] 286 10*3/uL 150-450 [facility] No Panel InformationOrdered By: Agueda Johnson on 11-02-2023 Estimated GFR (MDRD) Amer 106 mL/min >60 [facility] Comment on above: GFR Calc Estimated GFR (MDRD) Non-Af Amer 87 mL/min >60 [facility] Comment on above: Non- GFR Calc VLDL Cholesterol 49 mg/dL 5-40 [facility] RBC Auto (Bld) [#/Vol]Ordere d By: Agueda Johnson on 11-02-2023 RBC (Bld) [#/Vol] 5.13 10*6/uL 4.2-5.4 [facility] Serum or plasma calcium kim urement (mass/volume)Ordered By: Agueda Johnson on 11-02-2023 Calcium [Mass/Vol] 9.4 mg/dL 8.5-10.1 [facility] Serum or plasma creatinine m easurement (mass/volume)Ordered By: Agueda Johnson on 11-02-2023 Creatinine [Mass/Vol] 0.78 mg/dL 0.55-1.02 [facility] Comment on above: The validity of the calculated GFR & GFRAA in patients over 70 years has not been determined. Clinical correlation is essential. Serum or plasma thyroid stim ulating hormone (TSH) measurement (units/volume)Ordered By: Agueda Johnson on 11-02-2023 TSH Qn 1.33 uIU/mL 0.358-3.74 [facility] Serum or plasma urea nitroge n measurement (mass/volume)Ordered By: Agueda Johnson on 11-02-2023 Urea nitrogen [Mass/Vol] 18 mg/dL 7-18 [facility] Thin prep Papanicolaou smear with manual screeningOrdered By: Agueda Johnson on 11-02-2023 Thin prep Papanicolaou smear with manual screening 4.0 g/dL 3.2-5.0 [facility] Thin prep Papanicolaou smear with manual screening 31 U/L 15-37 [facility] Comment on above: Slight Hemolysis, Re sult may be falsely increased. Thin prep Papanicolaou smear with manual screening 7 5-15 [facility] Basophil percentageOrdered B y: Dr. Johnson on 10-29-2022 Bilirubin [Mass/Vol] 0.30 mg/dL 0.20-1.[address] [facility] Comment on above: For patients on eltr ombopag therapy, use of Dimension [place] TBIL is not recommended. Chloride [Moles/Vol] 105 mmol/L 98-[address] [facility] Cholesterol [Mass/Vol] 213 mg/dL <200 [facility] Comment on above: <200 mg/dL Desirable 200-240 mg/dL Borderline >240 mg/dL High Risk Glucose [Mass/Vol] 98 mg/dL 74-106 [facility] Potassium [Moles/Vol] 3.9 mmol/L 3.5-5.1 [facility] Protein [Mass/Vol] 8.0 g/dL 6.4-8.2 [facility] Sodium [Moles/Vol] 139 mmol/L 136-145 [facility] Triglyceride [Mass/Vol] 179 mg/dL <199 [facility] Comment on above: The drugs N-Acetylcy steine and Metamizole may falsely depress this assay.Serum Triglycerides Reference Interval Normal <150 mg/dL Borderline high 150 - 199 mg/dL High 200 - 499 mg/dL Very High > or = 500 mg/dL Laboratory - Chemistry and C hemistry - challengeOrdered By: Dr. Johnson on 10-29-2022 ALP [Catalytic activity/Vol] 81 U/L 45-117 [facility] ALT [Catalytic activity/Vol] 33 U/L 13-56 [facility] CO2 [Moles/Vol] 26.0 mmol/L 21.0-32.0 [facility] Globulin (S) [Mass/Vol] 4.4 g/dL 2.2-4.2 [facility] Urea nitrogen/Creatinine [Mass ratio] 16.9 mg/mg 10-20 [facility] No Panel InformationOrdered By: Dr. Johnson on 10-29-2022 Estimated GFR (MDRD) Amer 107 mL/min >60 [facility] Comment on above: GFR Calc Estimated GFR (MDRD) Non-Af Amer 89 mL/min >60 [facility] Comment on above: Non- GFR Calc Thyroid Stimulating Hormone (TSH) 1.66 uIU/mL 0.358-3.74 [facility] Serum or plasma albumin kim urement (mass/volume)Ordered By: Dr. Johnson on 10-29-2022 Albumin [Mass/Vol] 3.6 g/dL 3.2-5.0 [facility] Serum or plasma albumin/glob ulin mass ratioOrdered By: Dr. Johnson on 10-29-2022 Albumin/Globulin [Mass ratio] 0.8 {ratio} 0.9-2.4 [facility] Serum or plasma calcium kim urement (mass/volume)Ordered By: Dr. Johnson on 10-29-2022 Calcium [Mass/Vol] 9.0 mg/dL 8.5-10.1 [facility] Serum or plasma cholesterol in HDL measurement (mass/volume)Ordered By: Dr. Johnson on 10-29-2022 Cholesterol in HDL [Mass/Vol] 48 mg/dL >40 [facility] Comment on above: The drugs N-Acetylcy steine and Metamizole may falsely depress this assay. Reference Range HDL <40 mg/dL Low HDL Cholesterol HDL >or= 60 mg/dL High HDL Cholesterol Serum or plasma cholesterol in VLDL measurement (mass/volume)Ordered By: Dr. Johnson on 10-29-2022 Cholesterol in VLDL [Mass/Vol] 36 mg/dL 5-40 [facility] Serum or plasma creatinine m easurement (mass/volume)Ordered By: Dr. Johnson on 10-29-2022 Creatinine [Mass/Vol] 0.77 mg/dL 0.55-1.02 [facility] Comment on above: The validity of the calculated GFR & GFRAA in patients over 70 years has not been determined. Clinical correlation is essential. Serum or plasma low density lipoprotein (LDL) cholesterol measurement (mass/volume)Ordered By: Dr. Johnson on 10-29-2022 Cholesterol in LDL [Mass/Vol] 129 mg/dL 0-130 [facility] Serum or plasma urea nitroge n measurement (mass/volume)Ordered By: Dr. Johnson on 10-29-2022 Urea nitrogen [Mass/Vol] 13 mg/dL 7-18 [facility] Thin prep Papanicolaou smear with manual screeningOrdered By: Dr. Johnson on 10-29-2022 Thin prep Papanicolaou smear with manual screening 21 U/L 15-37 [facility] Thin prep Papanicolaou smear with manual screening 8 5-15 [facility] Cervical or vagninal specime n microscopic examination by cytology stain (reported asOrdered By: Dr. Johnson on 10-26-2022 Cytology report Cyto stain Doc (Cvx/Vag) Comment . [facility] Comment on above: The Pap smear is a s creening test designed to aid in thedetection of premalignant and malignant conditions of theuterine cervix. It is not a diagnostic procedure andshould not be used as the sole means of detecting cervicalcancer. Both false-positive and false-negative reports dooccur. Laboratory - CytologyOrdered By: Dr. Johnson on 10-26-2022 Alternative Energy Engineer Cyto stain Nom (Cvx/Vag) [ID] Comment . [facility] Comment on above: Tam Dennis, Cs Associate (ASCP) Laboratory - Miscellaneous t estsOrdered By: Dr. Johnson on 10-26-2022 Service comment (Unsp spec) [Interp] Comment . [facility] Comment on above: This liquid based Th inPrep(R) pap test was screened withthe use of an image guided system. Service comment (Unsp spec) [Interp] . . [facility] No Panel InformationOrdered By: Dr. Johnson on 10-26-2022 Pap Smear Additional Comments 30-65 . [facility] Pap Smear QC Review Comment . [facility] Comment on above: Mari Mcgill Cyto technologist Pathology report final diagnosis Narrative Comment . [facility] Comment on above: NEGATIVE FOR INTRAEP ITHELIAL LESION OR MALIGNANCY.PREDOMINANCE OF COCCOBACILLI CONSISTENT WITH SHIFT IN VAGINAL GIOVANA ISPRESENT.THIS SPECIMEN WAS RESCREENED PART OF OUR DIRECTOR OF EMPLOYEE DEVELOPMENT PROGRAM. Post Op (General Surgery)on 06-16-2022 Post Op (General Surgery) Diagnoses/Problems History of Abdominal pain, RUQ (right upper quadrant) (789.01) (R10.11) History of Symptomatic cholelithiasis (574.20) (K80.20) History of Cholecystectomy laparoscopic 06/01/[address] Pizano, pathology showed cholelithiasis and chronic cholecystitis as well as cholesterolosis. Provider Impressions Ms. Forde is a 36-year-old female s/p laparoscopic cholecystectomy on 06/01/2022 for symptomatic cholelithiasis, with pathology also showing chronic cholecystitis. She is doing well without any symptoms of postoperative complication. She may resume all regular activities. She will follow-up on an as-needed basis. Chief Complaint s/p laparoscopic cholecystectomy History of Present IllnessMs. oFrde is a 36-year-old female s/p laparoscopic cholecystectomy on 06/01/2022 for symptomatic cholelithiasis. She was noted to have cholecystitis at time of surgery. Surgical pathology showed chronic cholecystitis with cholesterolosis and cholelithiasis. She is doing well since surgery. She had some loose bowel movements after eating the first week, but states that this is getting better. She denies any yellowing of skin or eyes. She is tolerating a regular diet. She is back to work. Review of Systems No jaundice or scleral icterus No fever, redness or drainage from incisions + Loose bowel movements, now improving Past Medical History History of hypothyroidism (V12.29) (Z86.39) Surgical History History of Cholecystectomy laparoscopic 06/01/[address] Pizano, pathology showed cholelithiasis and chronic cholecystitis as well as cholesterolosis. Social History Consumes alcohol (V49.89) (Z72.89) Non-smoker (V49.89) (Z78.9) Allergies No Known Drug Allergies Recorded By: Larissa Noyola; 05/03/2022 1:19:02 PM Current Meds Medication NameInstruction Levothyroxine Sodium 75 MCG Oral Tablet Physical Exam No physical exam performed as this was a virtual telephone follow-up appointment. Patient denied any redness or drainage from incisions. Results/Data Surgical pathology: Chronic cholecystitis with cholesterolosis and cholelithiasis. Signatures Electronically signed by : Gloria Pizano MD; Jun 16 2022 9:00AM EST (Author) Normal [employer] CORONAVIRUS 2019, SCREEN ASY MPTOMATICon 06-01-2022 SARS-CoV-2 (COVID-19) RNA GAUDENCIO+probe Ql (Unsp spec) Not detected Normal Not Detected [facility] Comment on above: Result Comment: . This assay is designed to detect the N, ORF1ab and/or S genes of SARS-CoV-2 via nucleic acid amplification. A Negative (NOT DETECTED) result does not preclude 2019-nCoV infection since the adequacy of sample collection and/or low viral burden may result in presence of viral nucleic acids below the clinical sensitivity of this test method. Negative (NOT DETECTED) result should not be used as the sole basis for treatment or other patient management decisions. Rather negative results should be combined with clinical observations, patient history, and epidemiological information to make patient management decisions. Fact sheet for providers: https://www.fda.gov/media/272096/download Fact sheet for patients: https://www.fda.gov/media/466817/download This test has received FDA Emergency Use Authorization (EUA) and has been verified by [facility] ([facility]). This test is only authorized for the duration of time that circumstances exist to justify the authorization of the emergency use of in vitro diagnostic tests for the detection of SARS-CoV-2 virus and/or diagnosis of COVID-19 infection under section 564(b)(1) of the Act, 21 U.S.C. 360bbb-3(b)(1), unless the authorization is terminated or revoked sooner. [facility] is certified under CLIA-88 as qualified to perform high complexity testing. Testing is performed in the [facility] laboratories located at [address] [place] [address]. Performed By: #### [facility] #### [address] [place] [address] Covid 19 Resultson 2 SARS-CoV-2 (COVID-19) RNA GAUDENCIO+probe Ql (Unsp spec) NEGATIVE COVID-19 Test Coronaviruses are common world-wide and are the cause of many common colds. SARS-COV2 is a new coronavirus that began circulating worldwide in 2019 so we are calling it COVID-19. It has been estimated that four out of five patients with COVID-19 will recover at home without the need for medical attention. Symptoms of COVID-19 may include cough, fever, shortness of breath, loss of taste or smell and other flu-like symptoms including chills, sore muscles, sore throat, and headache. Severe illness is more common in older people and people with other health problems such as high blood pressure, obesity, and immune system problems. If the test is positive, you have COVID-19. You will be contacted by the ordering physicians office and instructed to remain on home isolation, in accordance with CDC guidelines. You may also be contacted by the [facility] to see if any of your close contacts may have been exposed to the virus and need to quarantine. If the test is negative, you likely do not have COVID-19 at this time, but you still may have a different illness that can spread to other people (like Influenza, or the Flu) and could still be at risk for getting COVID-19. We recommend that you stay away from other people to limit the spread of illness until your symptoms are improving and you are fever-free for 24 hours without the use of fever lowering medications such as acetaminophen or ibuprofen. No test is 100% accurate so if you are still concerned you may have COVID-19, talk to your doctor about the need to continue to stay away from others. Medicines Unless your provider told you not to use the following: Acetaminophen (Tylenol and others) is generally safe. Anti-inflammatory medications, such as Ibuprofen (Advil or Motrin) or Naproxen (Aleve) can also be used. Xlpb-oyg-eipdvkd cough and cold medicines can be used according to the instructions on the package. Some rgeh-rif-ydhoari medicines also contain acetaminophen. Make sure you are not taking more than your recommended dose. For those not hospitalized, there is no specific treatment available for this illness. Antibiotics do not treat Coronaviruses. Follow-Up Follow up with your doctor by scheduling a virtual visit or consider follow-up at one of our urgent care fever clinics. If you are having difficulty breathing, or are very weak and having difficulty standing, this is a medical emergency. Call 911 or have someone take you to the nearest emergency room immediately. If possible, wear a facemask. Additional guidance from the CDC for patients who tested POSITIVE for COVID-19 How to isolate: Isolate yourself in a specific room at home and limit your contact with others. Use a separate bathroom from other members of the household, when possible. Leave home only to get essential medical care. Do not go to work, school or public areas. Avoid using public transportation, ride-sharing, or taxis. Restrict contact with pets and other animals. If you must care for your pet or be around animals while you are sick, wash your hands before and after your interaction and wear a facemask. Make sure that shared spaces in the home have good airflow, such as by an air conditioner or an opened window, weather permitting. Personal Hygiene Procedures: Wear a face mask when in the same room as other people or pets. If a face mask interferes with your breathing, others should wear a mask when sharing space with you. Frequent hand-washing: wash your hands with soap and water for at least 20 seconds. If soap and water are not available, use alcohol-based hand immigration officer. Avoid touching your eyes, nose, and mouth with unwashed hands. Household Hygiene Procedures: Avoid sharing personal household items such as dishes, glassware, cups, eating utensils, towels or bedding with other people or pets in your home. After use, these items should be washed with soap and hot water. Disinfect all high-touch surfaces every day with antibacterial cleaning solutions such as Lysol wipes, bleach, cleansers, etc. High-touch surfaces include tabletops, doorknobs, bathroom fixtures, toilets, phones, keyboards, tablets and bedside tables. Immediately clean any surfaces that may have blood, poop or body fluids on them, using antibacterial cleaning solutions such as Lysol wipes, bleach, cleansers, etc. If clothing or bedding come into contact with blood, poop or body fluids, they should be washed immediately. Follow the directions on the laundry detergent and clothing labels but hot water is recommended when possible. Stopping home isolation precautions: If possible, consult your doctor before stopping home isolation precautions. According to the CDC, you can discontinue home isolation precautions when you have met both of these criteria: Your fever and respiratory symptoms have been gone for 24 ruperto (more content not included)... Normal [facility] No Panel Informationon 06-01 -[facility] Work Phone: Order Reconciliationon 06-01 Order Reconciliation Page 1 Discharge Reconciliation Document Reconciliation Type: Discharge requested on behalf of Gloria Pizano (Physician) done by Gloria Pizano) Discharge - Reconciliation: 01-Jun-2022 09:11 by: Gloria Pizano) Home Medications EnteredHOME MEDICATIONS AT DISCHARGE DateReconciliation Comment/ Additional Information levothyroxine 75 mcg (0.075 mg) oral tablet 1 tab(s) orally once a day 26-May-2022 13:07 levothyroxine 75 mcg (0.075 mg) oral tablet 1 tab(s) orally once a day 26-May-2022 13:07 levothyroxine 75 mcg (0.075 mg) oral tablet is continued as levothyroxine 75 mcg (0.075 mg) oral tablet Current OrdersDateHOME MEDICATIONS AT DISCHARGE DateReconciliation Comment/ Additional Information HYDROmorphone Injectable (DILAUDID)DOSE = 0.4 mg IntraVenous Push Every 5 Minutes, PRN Pain - Severe (7-10) (PACU)Clinician Notes: Mallory-operative order ONLYMax total of 4 mg regardless of dose. 31-May-2022 09:02 HYDROmorphone Injectable is not required Lactated Ringers Infusion IV Bag Volume = 1,000 mL Run at: 100 mL/hr IntraVenous Clinician Notes: Mallory-operative order ONLY 31-May-2022 09:02 Lactated Ringers Infusion is not required Metoclopramide Injectable (REGLAN)DOSE = 10 mg IntraVenous Push Once, PRN persistent PONV if first line ineffectiveClinician Notes: Mallory-operative order ONLY 31-May-2022 09:02 Metoclopramide Injectable is not required Midazolam Injectable (VERSED)DOSE = 2 mg IntraVenous Push Once, PRN AnxietyClinician Notes: Mallory-operative order ONLY 31-May-2022 09:02 Midazolam Injectable is not required Naloxone Injectable (NARCAN)DOSE = 2 mg IntraVenous Push Once, PRN If patient RR below 10, obtunded or unarousableClinician Notes: DO NOT ADMINISTER UNTIL PHYSiCIAN HAS BEEN NOTIFIED AND ASSESSED PATIENT 31-May-2022 09:02 Naloxone Injectable is not required oxyCODONE Immediate Release Tablet (OXYIR, ROXICODONE)DOSE = 5 mg Oral Every 4 Hours, PRN Pain - Mild (1-3) (PACU) when able to take OralClinician Notes: Mallory-operative order ONLY 31-May-2022 09:02 oxyCODONE Immediate Release is not required Promethazine IV Piggy Back in Sodium Chloride 0.9% 50 mL (PHENERGAN)DOSE = 6.25 mg Once, PRN PONV, first lineRecommended Infusion Time: 15 minute(s)Clinician Notes: Mallory-operative order ONLY 31-May-2022 09:02 Promethazine IV Piggy Back is not required Home Medications Added During Discharge Reconciliation Activity as Tolerated 01-Jun-2022, Routine, Assistance Level: None, Restrictions: None Additional Patient Instructions Do not consume alcoholic beverages for 24 hours. Additional Patient Instructions Do not make important decisions or sign any important documents for the next 24 hours. Additional Patient Instructions Do not remove steri strips, they will fall off on their own. Additional Patient Instructions Do not smoke for 24 hours. Additional Patient Instructions Keep Surgical incision dry and clean. Call Physician For: excessive bleeding (slow general oozing that completely soaks dressing or fresh bright red bleeding) or bleeding that will not stop. Apply pressure to the area and elevate. Call Physician For: inability to urinate every 8-12 hours and your bladder becomes too full or painful. Call Physician For: persistant nausea and/or vomiting Over 24 hours Call Physician For: signs and sypmtoms of infection Increased redness or swelling at incision site, increased pain/tenderness at surgical site, increased temperature greater than 100 degress, increasing and/or progressive drainage from surgical site, and/or unusual odor from surgical site. Diet Regular Discharge Discharge Diagnosis< K80.20 Symptomatic cholelithiasis Discharge Provider, Gloria Pizano Discharge Disposition : .Home Condition at Discharge: Satisfactory Discharge Communication Instructions for Nursing Only: Remove IV prior to discharge from hospital. Do not remove any midline, if present, without an order from the provider. Discharge Instructions - PHR After your discharge from the hospital, two Summary of Care Documents will be available online in your Personal Health Record (PHR). 1.Consolidated-Clinical Document Architecture (C-CDA) Patient Discharge Summary This document is a summary of your hospital stay to be kept for your reference.2.C-CDA Visit Summary This document is a summary of your hospital stay to be shared with your follow-up providers (doctor, file conversion operator, physical therapist, etc.). Follow Up with Dr. Pizano in 2 Weeks 06/16/22 a 9:15am. May shower oxycodone-acetaminophen 5 mg-325 mg oral tablet 1 tab(s) orally every 4 hours, As Needed for post-operative pain for 2 days. Post Procedure Discharge Criteria Criteria: Easily arousable / responding appropriately; Significant complications are absent; SpO2 = or > 92%, or if SpO2 < 92%, maintains within 2% of baseline; Vital signs +/- 20% of preprocedure status; Ambulates w (more content not included)... [facility] [facility] Surgical Pathology Department Name CLARITZA FORDE Pathologist: MICHEL BLOUNT M.D. Date of Procedure: 06/01/2022 Date Received: 06/01/2022 Date Reported 06/07/2022 Submitting Physician: GLORIA PIZANO MD Location: [facility] Other External # FINAL DIAGNOSIS GALLBLADDER, CHOLECYSTECTOMY: -- CHRONIC CHOLECYSTITIS WITH CHOLESTEROLOSIS AND CHOLELITHIASIS. Electronically Signed Out By MICHEL BLOUNT M.D./BRUSH By the signature on this report, the individual or group listed as making the Final Interpretation/Diagnosis certifies that they have reviewed this case. Diagnostic interpretation performed at [facility] [address] [facility] [address] Clinical History: {Not Provided} Specimens Submitted As: A: GALLBLADDER Gross Description: Received in formalin, labeled with the patient's name and hospital number and gallbladder, is an intact gallbladder, opened for fixation, measuring 7.7 x 2.5 x 2.2 cm. The serosal surface is smooth, and glistening. The wall measures up to 0.2 cm in greatest thickness. The lumen contains bile. Calculi are present and are yellow, nodular, with a crystalline cut surface, resembling the mixed type, and ranges from 0.4 cm to 0.7 cm in greatest diameter. A calculus is impacted in the cystic duct. The mucosal surface is bile-stained and demonstrates longitudinally yellow streaks. Phlebotomist sections consisting of the cystic duct margin, and gallbladder wall are submitted in one cassette. DJO djo/06/02/2022 [facility] Department of Pathology [address] [place] [address] Normal [facility] Comment on above: Performed By: #### U HCS #### [facility] Surgical Pathology Department [address] [place] [id number] CORONAVIRUS 2019, SCREEN ASY MPTOMATICon 05-31-2022 Lab Specimen Source Nasal, Nasopharyngeal Normal [facility] Comment on above: Performed By: #### C OVSC #### [facility] [address] [facility] [place] [id number] Coronavirus 2019 RNA by PCR, Screening Asymptomticon 05-31-2022 Coronavirus 2019 RNA by PCR, Screening Asymptomtic Not detected Normal See Below -[facility] Work Phone: Comment on above: SOURCE: Nasal, Nasop haryngealReference Range: Not Detected.This assay is designed to detect the N, ORF1ab and/or S genes of SARS-CoV-2 via nucleic acid amplification. A Negative (NOT DETECTED) result does not preclude 2019-nCoV infection since the adequacy of sample collection and/or low viral burden may result in presence of viral nucleic acids below the clinical sensitivity of this test method. Negative (NOT DETECTED) result should not be used as the sole basis for treatment or other patient management decisions. Rather negative results should be combined with clinical observations, patient history, and epidemiological information to make patient management decisions.Fact sheet for providers: https://www.fda.gov/media/197141/downloadFact sheet for patients: https://www.fda.gov/media/089444/downloadThis test has received FDA Emergency Use Authorization (EUA) and has been verified by [facility] ([facility]). This test is only authorized for the duration of time that circumstances exist to justify the authorization of the emergency use of in vitro diagnostic tests for the detection of SARS-CoV-2 virus and/or diagnosis of COVID-19 infection under section 564(b)(1) of the Act, 21 U.S.C. 360bbb-3(b)(1), unless the authorization is terminated or revoked sooner. [facility] is certified under CLIA-88 as qualified to perform high complexity testing. Testing is performed in the [facility] laboratories located at [address] [place] [address]. Patient Profile - Preop v3on 05-26-2022 Patient Profile - Preop v3 Patient Profile - Preop: Initial Info: Patient DemographicsName: CLARITZA FORDE Date: 1985 Address: [address] [place] [address] Primary Phone [phone] Call Attemptedattempt 1 Instructions Givenappropriate clothing, bring responsible adult as the pharmacy delivery driver (procedure may be cancelled if no pharmacy delivery driver), center location, insurance information Prep Instructions Reviewedyes Instructed to Have No Fluids Aftermidnight How to be AddressedJESSICA Spoken Language PreferredEnglish Source of Informationpatient Stated Reason for AdmissionGALLBLADDER REMOVAL Primary Contact Name and NumberHUSBAND RYLEY [phone] Medications Brought to Hospitalno General Health: Weight in kg125.4 kilogram(s) Weight in uqn649.4 pound(s) Weight Methodactual (measured) Scale Typestanding Height in feet5 feet Height in rifvwb54 inch(es) Height in cm177.8 centimeter(s) Height Methodstated BMI (kg/m2)39.667 square meter Patient or Family Member Reaction to Anesthesiano previous family member reaction; never had anesthesia Blood Avoidance/Restrictionsnon e Previous Transfusion Reactionnot applicable Health Mgmt: Symptoms/Conditions Managed at Homeendocrine Are You no Are You Currently Breastfeedingno Endocrine Symptoms/Conditionsthyroi d disease Endocrine Management Strategiesmedication therapy Barriers to Managing Healthnone Relationship/Environ: Lives Withdependent child(zhao); spouse Living Arrangementshouse Resource/Environmental Concernsnone [facility]ticipated [facility] Anticipated at Transitionnone Tobacco Use: Tobacco Useno Pre-op Checklist: Arrival [id number] Arrival Time08:12 Procedure TypeLAP CHOLECYSTECTOMY WITH POSSIBLE OPEN CHOLECYSTECTOMY NPOyes Last Food [id number] 18:30 Last Clear Fluid [id number] 20:00 ID Band On Patientpatient ID (name) Consent Signedyes H&P Completeyes Anesthesia Assessment Completedyes EKG Performednot ordered Chest X-Ray Performednot ordered Preop Antibioticsstarted in preop COVID 19 Results in Last 7 daysNEGATIVE HCG Urine TestN/A PT REFUSED, SIGNED WAIVER Chlorhexadine Bath Givencompleted at home, given night before surgery, completed morning of surgery Nasal Antiseptic Appliednot applicable Soap and Water Bath the Night Before Surgeryyes Hair Washed with Shampooyes Bowel Prepno Pain Scales and Managementyes Additional Information: Information Review: Allergies, Home Meds and Significant Events have been Reviewed and Verified with Patient/Familyyes Allergy, Intolerance, Adverse Event: Allergies: No Known Allergies: Active Problem List: Medical History: Hypothyroidism: Catalog Name: Hypothyroidism, unspecified Electronic Signatures: Nena Escobar (RN) (Signed 01-Jun-2022 09:20) Authored: Initial Info, General Health, Health Mgmt, Relationship/Environ, Pre-op Checklist, Additional Information Rama Suarez) (Signed 26-May-2022 13:24) Authored: Initial Info, General Health, Tobacco Use, Additional Information Last Updated: 01-Jun-2022 09:20 by Nena Escobar (RN) [facility] Follow Up (General Surgery)o n 04-28-2022 Follow Up (General Surgery) Diagnoses/Problems Symptomatic cholelithiasis (574.20) (K80.20) Provider Impressions Ms. Forde is a 36-year-old female with symptomatic cholelithiasis. Risks, benefits and alternatives of laparoscopic cholecystectomy were discussed with the patient. This included risk of bleeding, infection, viscous injury, conversion to an open procedure, bile leakage or bile duct injury, post-cholecystectomy diarrhea, and possible need for subsequent endoscopic or surgical interventions. The patient was agreeable to proceed with surgery and is scheduled for laparoscopic cholecystectomy on 06/01/22. Chief Complaint Right upper quadrant abdominal pain History of Present IllnessMsLeonel Gan and is a 36-year-old female who I previously evaluated on 04/11/2022 for right upper quadrant abdominal pain. This was a single episode of pain after eating Lao food that lasted for approximately 5 hours. She had normal labs, including T bili 0.4. She has since had a right upper quadrant ultrasound that confirms the presence of gallstones. She had no pericholecystic fluid or wall thickening. No biliary dilation, CBD measured 2 mm. She had mild fatty changes of the liver. She is morbidly obese with BMI 40, but no previous abdominal surgery. She has not had any recurrent episodes since I last evaluated her. She denies any issues with diarrhea. She denies any yellowing of the skin or eyes or dark-colored urine. Review of Systems + Single episode of postprandial right upper quadrant abdominal pain with associated nausea and vomiting No jaundice, scleral icterus, or dark-colored urine Active Problems Abdominal pain, RUQ (right upper quadrant) (789.01) (R10.11) Symptomatic cholelithiasis (574.20) (K80.20) Assessed By: Gloria Pizano (General Surgery); Last Assessed: 28 Apr 2022 Past Medical History History of hypothyroidism (V12.29) (Z86.39) Surgical History No previous abdominal surgery Family History Maternal grandmother with cholecystectomy for benign indication Social History Consumes alcohol (V49.89) (Z72.89) Non-smoker (V49.89) (Z78.9) Non-smoker. Occasional social alcohol use. No drug use. Current Meds Medication NameInstruction Levothyroxine Sodium 75 MCG Oral Tablet Vitals Vital Signs Recorded: 28Apr2022 03:20PM Heart Rate80 Xadotyrq025 Pjhihqvjs08 Height5 ft 10 in Kipcyi184 lb BMI Rvvyydnikz45.89 kg/m2 BSA Calculated2.4 Tobacco Useb) No Falls Screening (Age 18+)a) No falls within the last year Physical Exam Constitutional: No acute distress, conversant, pleasant Neurologic: alert and oriented Psych: appropriate affect Ears, Nose, Mouth and Throat: mucus membranes moist Pulmonary: No labored breathing, lungs clear bilaterally Cardiovascular: Regular rate and rhythm Abdomen: soft, nondistended, obese with BMI 40, nontender on today's exam, no Thompson's sign, no surgical scars Musculoskeletal: Moves all extremities, warm, no edema Skin: No jaundice Results/Data CT abdomen and pelvis from 04/04/2022 reviewed: Liver within normal limits, no biliary ductal dilation, gallbladder mildly distended, no calcified stones, no pericholecystic fluid. No alternative acute etiology of abdominal pain seen on the scan. Labs from 04/04/22 reviewed: WBC 7.9, hemoglobin 15.1, LFTs within normal limits including T bili 0.4, lipase 20 Right upper quadrant ultrasound from 04/15/2022 reviewed: Gallbladder is normal in size. Multiple gallstones present. No pericholecystic fluid. Wall measures 1.3 mm. No biliary ductal dilation. CBD measures 2 mm. Mild fatty changes of the liver. Signatures Electronically signed by : Gloria Pizano MD; Apr 28 2022 3:43PM EST (Author) Normal Seat 14A Tobacco Screening.on 022 Fall risk assessment a) No falls within the last year -[facility] Work Phone: Tobacco use status CPHS b) No -[facility] Work Phone: Ultrasound Right Upper Quadr karen 04-13-2022 Ultrasound Right Upper Quadrant Normal [facility] Work Phone: Initial Visit (General Surge ry)on 04-11-2022 Initial Visit (General Surgery) Diagnoses/Problems History of Gallbladder problem (575.9) (K82.9) Abdominal pain, RUQ (right upper quadrant) (789.01) (R10.11) Orders PMH: Gallbladder problem Ultrasound Right Upper Quadrant; Status:Active; Requested for:[id number]; Perform:[facility];Ordered; For:PMH: Gallbladder problem; Ordered By:Gloria Pizano; Radiologist to Determine Optimal Study : Y What are the patient's signs and symptoms? : gallbladder SocHx: Non-smoker Tobacco Use Screening; Status:Complete; Done: [id number] Perform:Not Applicable;Ordered; For:SocHx: Non-smoker; Ordered By:Pati Black; Provider Impressions Ms. Forde is a 36-year-old obese female with epigastric and right upper quadrant abdominal pain. We will obtain a right upper quadrant ultrasound. If she has stones, will discuss cholecystectomy. If she does not have any stones in the gallbladder, we will obtain a HIDA scan. If either of these studies is abnormal, I will see her back to discuss laparoscopic cholecystectomy. In the meantime, we discussed following a low-fat biliary diet and weight loss. Chief Complaint Right upper quadrant abdominal pain History of Present IllnessMs. Eula is a 36-year-old female seen in follow-up from recent emergency department visit on 04/04/22 for right upper quadrant abdominal pain. Pain began at about 9:30 PM after eating Lao food for dinner. She had associated nausea and vomiting. She felt febrile, but did not measure a fever and denied any sweats or chills. The pain lasted approximately 5 hours before easing off. She had some residual soreness in the upper abdomen that she states felt more like muscle pain from repeated vomiting. She denies any yellowing of the skin or eyes or dark-colored urine. She denies any similar episodes prior to this. CT scan showed a dilated gallbladder, but no pericholecystic fluid or acute inflammation. There were no calcified stones visible on scan. She had no alternative etiology of the abdominal pain identified on the CT scan. Her labs were all within normal limits, including T bili 0.4. She is morbidly obese and has hypothyroidism. She has no previous abdominal surgery. Review of Systems Constitutional: no fever, sweats, and chills Cardiovascular: No chest pain or palpitations Respiratory: No cough or shortness of breath Gastrointestinal: + single episode of post-prandial right upper quadrant abdominal pain with associated nausea and vomiting Genitourinary: no dark-colored urine Musculoskeletal: no weakness or swelling Integumentary: no jaundice Neurological: no confusion Endocrine: no heat or cold intolerance Heme/Lymph: no easy bruising or bleeding Active Problems Abdominal pain, RUQ (right upper quadrant) (789.01) (R10.11) Past Medical History History of hypothyroidism (V12.29) (Z86.39) Surgical History No previous abdominal surgery Family History Maternal grandmother with cholecystectomy for benign indication. Social History Consumes alcohol (V49.89) (Z72.89) Non-smoker (V49.89) (Z78.9) Non-smoker. Occasional social alcohol use, approximately 2 times per month. No drug use. Current Meds Medication NameInstruction Levothyroxine Sodium 75 MCG Oral Tablet Vitals Vital Signs Recorded: [id number] 01:54PM Heart Rate72 Cyvhalea793 Itignkeqh14 Height5 ft 10 in Vhtisp889 lb 4 oz BMI Ydvsjhmjnb02.92 kg/m2 BSA Calculated2.4 Tobacco Useb) No Falls Screening (Age 18+)b) One or more falls in the last year Physical Exam Constitutional: No acute distress, conversant, pleasant Neurologic: alert and oriented Psych: appropriate affect Ears, Nose, Mouth and Throat: mucus membranes moist Pulmonary: No labored breathing, lungs clear bilaterally Cardiovascular: Regular rate and rhythm Abdomen: soft, nondistended, obese with BMI 40, tender to palpation in the right upper quadrant and epigastric region, no Thompson's sign, no surgical scars Musculoskeletal: Moves all extremities, warm, no edema Skin: No jaundice Results/Data CT abdomen and pelvis from 04/04/2022 reviewed: Liver within normal limits, no biliary ductal dilation, gallbladder mildly distended, no calcified stones, no pericholecystic fluid. No alternative acute etiology of abdominal pain seen on the scan. Labs from 04/04/22 reviewed: WBC 7.9, hemoglobin 15.1, LFTs within normal limits including T bili 0.4, lipase 20 Signatures Electronically signed by : Gloria Pizano MD; Apr 11 2022 2:29PM EST (Author) Normal Seat 14A Tobacco Screening.on 022 Fall risk assessment b) One or more fall s in the last year [facility] Work Phone: Tobacco use status CP b) No [facility] Work Phone: CBC AND DIFFERENTIALon 04-04 Basophils (Bld) [#/Vol] 0.10 10*3/uL Normal 0.00 - 0.10 [facility] Comment on above: Performed By: #### C BCDF #### [address] [address] Basophils/100 WBC (Bld) 0.8 % Normal 0.0 - 2.0 [facility] Comment on above: Performed By: #### C BCDF #### [address] [address] Eosinophils (Bld) [#/Vol] 0.10 10*3/uL Normal 0.00 - 0.70 [facility] Comment on above: Performed By: #### C BCDF #### [address] [address] Eosinophils/100 WBC (Bld) 1.3 % Normal 0.0 - 6.0 [facility] Comment on above: Performed By: #### C BCDF #### [address] [address] Erythrocyte distribution width (RBC) [Ratio] 13.6 % Normal 11.5 - 14.5 [facility] Comment on above: Performed By: #### C BCDF #### [address] [address] Hematocrit (Bld) [Volume fraction] 44.5 % Normal 36.0 - 46.0 [facility] Comment on above: Performed By: #### C BCDF #### [address] [address] Hemoglobin (Bld) [Mass/Vol] 15.1 g/dL Normal 12.0 - 16.0 [facility] Comment on above: Performed By: #### C BCDF #### [address] [address] Lymphocytes (Bld) [#/Vol] 1.60 10*3/uL Normal 1.20 - 4.80 [facility] Comment on above: Performed By: #### C BCDF #### [address] [address] Lymphocytes/100 WBC (Bld) 20.8 % Normal 13.0 - 44.0 [facility] Comment on above: Performed By: #### C BCDF #### [address] [address] MCHC (RBC) [Mass/Vol] 34.0 g/dL Normal 32.0 - 36.0 [facility] Comment on above: Performed By: #### C BCDF #### [address] [address] MCV (RBC) [Entitic vol] 87 fL Normal 80 - 100 [facility] Comment on above: Performed By: #### C BCDF #### [address] [address] Monocytes (Bld) [#/Vol] 0.30 10*3/uL Normal 0.10 - 1.00 [facility] Comment on above: Performed By: #### C BCDF #### [address] [address] Monocytes/100 WBC (Bld) 4.0 % Normal 2.0 - 10.0 [facility] Comment on above: Performed By: #### C BCDF #### [address] [address] Neutrophils (Bld) [#/Vol] 5.80 10*3/uL Normal 1.20 - 7.70 [facility] Comment on above: Result Comment: Perc ent differential counts (%) should be interpreted in the context of the absolute cell counts (cells/L). Performed By: #### C BCDF #### [address] [address] Neutrophils/100 WBC (Bld) 73.1 % Normal 40.0 - 80.0 [facility] Comment on above: Performed By: #### C BCDF #### [address] [address] NUCLEATED RBC 0.1 /100 WBC Normal [facility] Comment on above: Performed By: #### C BCDF #### [address] [address] Platelets (Bld) [#/Vol] 323 10*3/uL Normal 150 - 450 [facility] Comment on above: Performed By: #### C BCDF #### [address] [address] RBC 5.09 x10E12/L Normal 4.00 - 5.20 [facility] Comment on above: Performed By: #### C BCDF #### [address] [address] WBC (Bld) [#/Vol] 7.9 10*3/uL Normal 4.4 - 11.3 [facility] Comment on above: Performed By: #### C BCDF #### [address] [address] COMPREHENSIVE PANELon 2021 Albumin [Mass/Vol] 4.6 g/dL Normal 3.4 - 5.0 [facility] Comment on above: Performed By: #### C MP #### [address] [address] ALP [Catalytic activity/Vol] 64 U/L Normal 33 - 110 [facility] Comment on above: Performed By: #### C MP #### [address] [address] ALT [Catalytic activity/Vol] 26 U/L Normal 7 - 45 [facility] Comment on above: Result Comment: Brenda ents treated with Sulfasalazine may generate falsely decreased results for ALT. Performed By: #### C MP #### [address] [address] Anion gap [Moles/Vol] 14 mmol/L Normal 10 - 20 [facility] Comment on above: Performed By: #### C MP #### [address] [address] AST [Catalytic activity/Vol] 32 U/L Normal 9 - 39 [facility] Comment on above: Performed By: #### C MP #### [address] [address] Bilirubin [Mass/Vol] 0.4 mg/dL Normal 0.0 - 1.2 [facility] Comment on above: Performed By: #### C MP #### [address] [address] Calcium [Mass/Vol] 9.2 mg/dL Normal 8.6 - 10.3 [facility] Comment on above: Performed By: #### C MP #### [address] [address] Chloride [Moles/Vol] 102 mmol/L Normal 98 - 107 [facility] Comment on above: Performed By: #### C MP #### [address] [address] Creatinine [Mass/Vol] 0.71 mg/dL Normal 0.50 - 1.05 [facility] Comment on above: Performed By: #### C MP #### [place] [id number] eGFR FEMALE >90 Normal >90 [facility] Comment on above: Result Comment: CALC ULATIONS OF ESTIMATED GFR ARE PERFORMED USING THE 2020 CKD-EPI STUDY REFIT EQUATION WITHOUT THE RACE VARIABLE FOR THE IDMS-TRACEABLE CREATININE METHODS. https://jasn.asnjournals.org/content/early/ASN.79336 [address] Performed By: #### C MP #### [address] [address] Glucose [Mass/Vol] 131 mg/dL High 74 - 99 [facility] Comment on above: Performed By: #### C MP #### [address] [address] HCO3 (Bld) [Moles/Vol] 28 mmol/L Normal 21 - 32 [facility] Comment on above: Performed By: #### C MP #### [address] [address] Potassium [Moles/Vol] 3.6 mmol/L Normal 3.5 - 5.3 [facility] Comment on above: Performed By: #### C MP #### [address] [address] Protein [Mass/Vol] 7.8 g/dL Normal 6.4 - 8.2 [facility] Comment on above: Performed By: #### C MP #### [address] [address] Sodium [Moles/Vol] 140 mmol/L Normal 136 - 145 [facility] Comment on above: Performed By: #### C MP #### [address] [address] Urea nitrogen [Mass/Vol] 13 mg/dL Normal 6 - 23 [facility] Comment on above: Performed By: #### C MP #### [address] [address] [address] ABDOMEN [facility] ABDOMEN AND PELVIS W IV CONTRAST Patient Name: CLARITZA FORDE STUDY: CT ABDOMEN AND PELVIS W IV CONTRAST; 04/04/2022 3:52 am INDICATION: ruq pain . COMPARISON: None. ACCESSION NUMBER(S): [id number] ORDERING CLINICIAN: TRISTAN CLARKE TECHNIQUE: Axial CT images of the abdomen and pelvis with coronal and sagittal reconstructed images obtained after intravenous administration of 90 mL Omnipaque 350 FINDINGS: LOWER CHEST: No acute abnormality of the lung bases. BONES: No acute osseous abnormality. ABDOMINAL WALL: Within normal limits. ABDOMEN: LIVER: Within normal limits. BILE DUCTS: Normal caliber. GALLBLADDER: Mildly distended no calcified gallstones seen no pericholecystic fluid. PANCREAS: Within normal limits. SPLEEN: Within normal limits. ADRENALS: Within normal limits. KIDNEYS and URETERS: Symmetric renal enhancement. No hydronephrosis or perinephric fluid collection. VESSELS: No aortic aneurysm. RETROPERITONEUM: No pathologically enlarged retroperitoneal lymph nodes. PELVIS: REPRODUCTIVE ORGANS: Uterus is anteverted no pelvic masses. BLADDER: Within normal limits. BOWEL: No dilated bowel. Normal appendix. PERITONEUM: No ascites or free air, no fluid collection. IMPRESSION: Mildly distended gallbladder without pericholecystic fluid or calcified gallstone. No CT evidence of acute cholecystitis. Appendix within normal limits. No bowel obstruction. Electronically signed by: HEIDI ATKINS MD Normal [facility] CT Abdomen and Pelvis with I V Contraston 04-04-2022 CT Abdomen and Pelvis W contrast IV Normal [facility] Work Phone: Complete Blood Count + Diffe rentialon 04-04-2022 Basophils/100 WBC (Bld) 0.8 % 0.0 - 2.0 [facility] Work Phone: Erythrocyte distribution width (RBC) [Ratio] 13.6 % See Below [facility] Work Phone: Comment on above: Reference Range: 11. 5 - 14.5 Hematocrit (Bld) [Volume fraction] 44.5 % See Below [facility] Work Phone: Comment on above: Reference Range: 36. 0 - 46.0 Hemoglobin (Bld) [Mass/Vol] 15.1 g/dL See Below [facility] Work Phone: Comment on above: Reference Range: 12. 0 - 16.0 Lymphocytes/100 WBC (Bld) 20.8 % See Below [facility] Work Phone: [phone] Comment on above: Reference Range: 13. 0 - 44.0 MCHC (RBC) [Mass/Vol] 34.0 g/dL See Below [facility] Work Phone: [phone] Comment on above: Reference Range: 32. 0 - 36.0 MCV (RBC) [Entitic vol] 87 fL 80 - 100 [facility] Work Phone: [phone] Monocytes/100 WBC (Bld) 4.0 % 2.0 - 10.0 [facility] Work Phone: Neutrophils/100 WBC (Bld) 73.1 % See Below [facility] Work Phone: [phone] Comment on above: Reference Range: 40. 0 - 80.0 Platelets (Bld) [#/Vol] 323 10*3/uL 150 - 450 [facility] Work Phone: [phone] RBC (Bld) [#/Vol] 5.09 {x10E12/L} See Below [facility] Work Phone: [phone] Comment on above: Reference Range: 4.0 0 - 5.20 WBC (Bld) [#/Vol] 7.9 10*3/uL 4.4 - 11.3 [facility] Work Phone: [phone] Complete Blood Count + Differential 0.10 {x10E9/L} See Below [facility] Work Phone: [phone] Comment on above: Reference Range: 0.0 0 - 0.10 Reference Range: 0.0 0 - 0.70 Complete Blood Count + Differential 0.30 {x10E9/L} See Below [facility] Work Phone: [phone] Comment on above: Reference Range: 0.1 0 - 1.00 Complete Blood Count + Differential 1.60 {x10E9/L} See Below [facility] Work Phone: [phone] Comment on above: Reference Range: 1.2 0 - 4.80 Complete Blood Count + Differential 5.80 {x10E9/L} See Below [facility] Work Phone: Comment on above: Reference Range: 1.2 0 - 7.70 Percent differential counts (%) should be interpreted in the context of the absolute cell counts (cells/L). Complete Blood Count + Differential 1.3 % 0.0 - 6.0 [facility] Work Phone: Complete Blood Count + Differential 0.1 {/100_WBC} [facility] Work Phone: HCG,URINEon 04-04-2022 Beta HCG ( test) Ql (U) Canceled Normal [facility] Comment on above: Order Comment: TEST HCG,URINE WAS CANCELLED, 04/04/2022 02:33 Performed By: #### H CGU ####[place] [id number] LIPASEon 04-04-2022 Lipase [Catalytic activity/Vol] 20 U/L Normal 9 - 82 [facility] Comment on above: Result Comment: Magaly puncture immediately after or during the administration of Metamizole may lead to falsely low results. Testing should be performed immediately prior to Metamizole dosing. K-iyzlgx-u-benzoquinone imine (metabolite of Acetaminophen) will generate erroneously low results in samples for patients that have taken toxic doses of acetaminophen. Performed By: #### L IPAS #### [place] [id number] Laboratory - Chemistry and C hemistry - challengeon 04-04-2022 Albumin BCP dye [Mass/Vol] 4.6 g/dL 3.4 - 5.0 [facility] Work Phone: ALP [Catalytic activity/Vol] 64 U/L 33 - 110 [facility] Work Phone: ALT With P-5'-P [Catalytic activity/Vol] 26 U/L 7 - 45 [facility] Work Phone: Comment on above: Patients treated wit h Sulfasalazine may generate falsely decreased results for ALT. Anion gap [Moles/Vol] 14 mmol/L 10 - 20 [facility] Work Phone: [phone] AST With P-5'-P [Catalytic activity/Vol] 32 U/L 9 - 39 [facility] Work Phone: Bilirubin [Mass/Vol] 0.4 mg/dL 0.0 - 1.2 [facility] Work Phone: [phone] Calcium [Mass/Vol] 9.2 mg/dL 8.6 - 10.3 [facility] Work Phone: [phone] Chloride [Moles/Vol] 102 mmol/L 98 - 107 [facility] Work Phone: [phone] CO2 [Moles/Vol] 28 mmol/L 21 - 32 [facility] Work Phone: [phone] Creatinine [Mass/Vol] 0.71 mg/dL See Below [facility] Work Phone: Comment on above: Reference Range: 0.5 0 - 1.05 Glucose [Mass/Vol] 131 mg/dL above high threshold 74 - 99 [facility] Work Phone: [phone] Potassium [Moles/Vol] 3.6 mmol/L 3.5 - 5.3 [facility] Work Phone: Protein [Mass/Vol] 7.8 g/dL 6.4 - 8.2 [facility] Work Phone: [phone] Sodium [Moles/Vol] 140 mmol/L 136 - 145 [facility] Work Phone: Urea nitrogen [Mass/Vol] 13 mg/dL 6 - 23 [facility] Work Phone: Lipase, Serumon 04-04-2022 Lipase [Catalytic activity/Vol] 20 U/L 9 - 82 [facility] Work Phone: [phone] Comment on above: Venipuncture immedia tely after or during the administration of Metamizole may lead to falsely low results. Testing should be performed immediately prior to Metamizole dosing. K-huskvf-f-benzoquinone imine (metabolite of Acetaminophen) will generate erroneously low results in samples for patients that have taken toxic doses of acetaminophen. No Panel Informationon 04-04 >90 >90 -[place] [facility] Work Phone: Comment on above: CALCULATIONS OF CARMEN MATED GFR ARE PERFORMED USING THE 2020 CKD-EPI STUDY REFIT EQUATION WITHOUT THE RACE VARIABLE FOR THE IDMS-TRACEABLE CREATININE METHODS.https://jasn.asnjournals.org/content///A .7249622443 Provider Note - ED v3on 03-25 Provider Note - ED v3 Provider Note: Chart Review: ED NOTES ED NOTES: History of Present Illness: 36-year-old female presents with concern for abdominal pain. States it began 5 hours ago. Aching in nature. Mid epigastrium as well as right upper quadrant. Admits to nausea and vomiting. Denies any fever, chills, urinary symptoms, vaginal bleeding or discharge. Past Medical History: Hypothyroidism Past surgical History: Noncontributory Family history: Reviewed and not pertinent to complaint Social history: Denies any drugs, alcohol, tobacco abuse. REVIEW OF SYSTEMS: Pertinent negatives and positives noted in the HPI. Otherwise, a complete review of system was negative. PHYSICAL EXAM: Appearance: Alert, oriented , cooperative, in no acute distress. Skin: Intact, dry skin, no lesions, rash, petechiae or purpura. Eyes: PERRLA, EOMs intact, Conjunctiva pink with no redness or exudates. HENT: Normocephalic, atraumatic. Nares patent. No intraoral lesions. Neck: Supple, without meningismus. Trachea at midline. No lymphadenopathy. Pulmonary: Clear bilaterally with good chest wall excursion. No rales, rhonchi or wheezing. No accessory muscle use or stridor. Cardiac: Regular rate and rhythm, no rubs, murmurs, or gallops. No JVD, Carotids without bruits. Abdomen: Abdomen is soft. Tenderness to palpation in the midepigastrium and right upper quadrant. Nondistended. No palpable organomegaly. No rebound or guarding. No CVA tenderness. Nonsurgical abdomen Genitourinary: Exam deferred. Musculoskeletal: Full range of motion. Pulses full and equal. No cyanosis, clubbing, or edema. Psychiatric: Appropriate mood and affect. HISTORY OF PRESENTING ILLNESS CLARITZA is a 36 year old Female and was seen by me at 04-Apr-2022 02:16 for a chief complaint of abdominal pain (c/o abdominal pain x 5 hours with nausea and vomiting.)(1). Triage Information: Most recent Vital Sign Value Date Temp (F): 97.6 04-04-2022 02:19 Temp (C): 36.4 04-04-2022 02:19 Heart Rate (beats/min): 65 04-04-2022 02:19 Respirations (breaths/min): 18 04-04-2022 02:19 SpO2 (%): 97 04-04-2022 02:19 BP Systolic (mm Hg): 166 04-04-2022 02:19 BP Diastolic (mm Hg): 105 04-04-2022 02:19 PAST MEDICAL HISTORY ALLERGIES/INTOLERANCES: No Known Allergies HEALTH HISTORY: No documented data. OUTPATIENT MEDICATIONS: Home Medications Review Status for Reconciliation: Complete Med Status: Patient Currently Takes Medications Drug Name: Synthroid 50 mcg (0.05 mg) oral tablet Instructions: 1 tab(s) orally once a day SIGNIFICANT EVENTS: No documented data. CRITICAL CARE RESULTS: Recent Lab Results: I have reviewed these laboratory results: Urinalysis 04-Apr-2022 04:19:00 ResultValue Color, Urine Straw Reference Range: STRAW,YELLOW Appearance, Urine CLEAR Specific [place], Urine 1.047 H pH, Urine 6.0 Protein, Urine NEGATIVE Glucose, Urine NEGATIVE Blood, Urine NEGATIVE Ketones, Urine 5(TRACE) A Bilirubin, Urine NEGATIVE Urobilinogen, Urine <2.0 Nitrite, Urine Negative Leukocyte Esterase, Urine NEGATIVE Complete Blood Count + Differential 04-Apr-2022 02:49:00 ResultValue White Blood Cell Count 7.9 Nucleated Erythrocyte Count 0.1 Red Blood Cell Count 5.09 HGB 15.1 HCT 44.5 MCV 87 MCHC 34.0 PLT 323 RDW-CV 13.6 Neutrophil % 73.1 Lymphocyte % 20.8 Monocyte % 4.0 Eosinophil % 1.3 Basophil % 0.8 Neutrophil Count 5.80 Lymphocyte Count 1.60 Monocyte Count 0.30 Eosinophil Count 0.10 Basophil Count 0.10 Comprehensive Metabolic Panel 04-Apr-2022 02:49:00 ResultValue Glucose, Serum 131 H NA 140 K 3.6 CL 102 Bicarbonate, Serum 28 Anion Gap, Serum 14 BUN 13 CREAT 0.71 GFR Female >90 Calcium, Serum 9.2 ALB 4.6 ALKP 64 T Pro 7.8 T Bili 0.4 Alanine Aminotransferase, Serum 26 Aspartate Transaminase, Serum 32 Lipase, Serum 04-Apr-2022 02:49:00 ResultValue Lipase, Serum 20 Radiology Results: Impression: Mildly distended gallbladder without pericholecystic fluid or calcified gallstone. No CT evidence of acute cholecystitis. Appendix within normal limits. No bowel obstruction. CT Abdomen and Pelvis with IV Contrast [Apr 04 2022 4:10AM] VITAL SIGNS: T PRBP SpO2O2(LPM) %FiO2 Method 04-Apr-2022 04:00:[id number]/102 98 room air, no respiratory support 04-Apr-2022 03:00:[id number]/102 95 room air, no respiratory support 04-Apr-2022 02:19:[id number]/105 97 room air, no respiratory support [facility] MDM/ED COURSE: Patient appears well and nontoxic. Lab work within normal limits. CT of the abdomen pelvis otherwise unremarkable. Patient's pain is consistent with biliary colic. Patient treated with Toradol and Zofran. Feeling improved. Will be treated with (more content not included)... Normal [facility] Risk Screen - Adult Emergenc yon 04-04-2022 Risk Screen - Adult Emergency Preferred Language: Preferred Language: Preferred Language for Discussing Health Care (patient/designee)Bengali Advanced Directives: Advance Directive/DNRno Family Violence Adult: Abuse Screen: Are you or have you been threatened or abused physically, emotionally, or sexually by anyoneno Learning Assessment (Patient): Learning Assessment (Patient): Patient is Able to be Assessed for Learningyes Factors Influencing Readiness to Learnpain Factors that Impact Ability to Learnnone Devices/Methods Used to Communicatenone Learning Preferencesaudio Cultural Considerationsnone Developmental Considerationsnone Latter Day Considerationsnone Learning Assessment (Other Learner): Learning Assessment (Other Learner): Other learner availableno Pressure Injury/TB/Substance: Pressure Injury: Pressure Injury Present on Admissionno Do you have a coughno Smoking Statusnever smoker Alcohol Useoccasionally Drug Usedenies Drug 2 Usedenies Admission Risk Screen: Significant IndicatorsComplete CAGE: CAGE: Is this an injured patient at a Tra[place] Center [place]/[place]/ [place]): no Electronic Signatures: Meghna Floyd (ADRIENNE) (Signed 04-Apr-2022 02:22) Authored: Preferred Language, Advanced Directives, Family Violence Adult, Learning Assessment (Patient), Learning Assessment (Other Learner), Pressure Injury/TB/Substance, Pressure Injury, CAGE Last Updated: 04-Apr-2022 02:22 by Meghna Floyd (ADRIENNE) [facility] Triage - EDon 04-04-2022 Triage - ED Quick Triage: Are You no Have You Given In The Last 6 Weeksno Are You Currently Breastfeedingno Chart Review: ARRIVAL INFORMATION Mode of Arrival: private vehicle CHIEF COMPLAINT CLARITZA FORDE is a Female patient with a chief complaint of abdominal pain (c/o abdominal pain x 5 hours with nausea and vomiting.). Triage Date/Time: 04-Apr-2022 02:19 RAN: 3 Vital Signs: Temperature: 97.6F ( 36.4C) taken temporal Blood Pressure: 166/105 Mean: Heart Rate: 65 Respiratory Rate: 18 Pulse Oximetry: 97% on room air, no respiratory support. Height: 5 feet 10.00 inches. 177.8 CM Weight: 253.5 pounds. Calculated 115.0 kg. (stated) Calculated BMI (kg/m2): 36.377 Calculated BSA (m2) 2.38 Jeovanny Coma Scale: Best Eye Response: (E4) spontaneous Best Motor Response: (M6) obeys commands Best Verbal Response: (V5) oriented Jeovanny Score: 15 Allergies: no Last menstrual period: unknown Patient has homicidal thoughts: no Risk Screens Suicide Risk Screen In the Past Month: Have you wished you were or wished you could go to sleep and not wake up no In the Past Month: Have you had any actual thoughts of killing yourself no In Your Lifetime: Have you ever done anything, started to do anything, or prepared to do anything to end your life no Hernández Fall Scale Screening Has the patient fallen before (or is the patient in the ED as a result of a fall) has not had a fall Does the patient have an impaired gait does not have impaired gait Is the patient cognitively impaired not cognitively impaired Interventions: Hernández Fall Interventions: LOW INTERVENTIONS: *patient oriented to surroundings and call system, * patient/family falls education completed and documented, *patients fall status communicated during bedside handoff, *whiteboard updated, *mode of toileting discussed with patient, *bed in low position with brakes locked, *call light in reach, * non-skid footwear TRAVEL HISTORY Travel History Coronavirus Screening: no exposure or symptoms Travel Exposure History: NO travel to International locations in the past 30 days PAIN Pain Scale Used: LORY Past Medical History: Past Medical History Reviewedyes Electronic Signatures: Meghna Floyd (ADRIENNE) (Signed 04-Apr-2022 02:23) Authored: Quick Triage, Risk Screens, Pain, Travel History, Chart Review, Scores, Past Medical History Last Updated: 04-Apr-2022 02:23 by Meghna Floyd) Normal [facility] URINALYSISon 04-04-2022 Appearance (U) CLEAR Normal CLEAR [facility] Comment on above: Performed By: #### U A #### [address] [address] Bilirubin Ql (U) Negative Normal NEGATIVE [facility] Comment on above: Performed By: #### U A #### [address] [address] Color (U) Straw Normal STRAW,YELLO W [facility] Comment on above: Performed By: #### U A #### [address] [place] [address] Glucose Ql (U) Negative Normal NEGATIVE [facility] Comment on above: Performed By: #### U A #### [address] [address] Hemoglobin Ql (U) Negative Normal NEGATIVE [facility] Comment on above: Performed By: #### U A #### [place] [id number] Ketones Ql (U) 5(TRACE) Abnormal NEGATIVE [facility] Comment on above: Performed By: #### U A #### [place] [id number] Leukocyte esterase Test strip Ql (U) Negative Normal NEGATIVE [facility] Comment on above: Performed By: #### U A #### [place] [id number] Nitrite Ql (U) Negative Normal NEGATIVE [facility] Comment on above: Performed By: #### U A #### [place] [id number] pH (U) 6.0 [pH] Normal 5.0 - 8.0 [facility] Comment on above: Performed By: #### U A #### [place] [id number] Protein Ql (U) Negative Normal NEGATIVE [facility] Comment on above: Performed By: #### U A #### [place] [id number] Specific gravity (U) [Rel density] 1.047 High 1.005 - 1.035 [facility] Comment on above: Performed By: #### U A #### [address] [address] Urobilinogen (U) [Mass/Vol] mg/dL Normal 0.0 - 1.9 [facility] Comment on above: Performed By: #### U A #### [address] [address] Urinalysison 04-04-2022 Color (U) Straw See Below [facility] Work Phone: Comment on above: Reference Range: STR AW,YELLOW Glucose Ql (U) Negative NEGATIVE [facility] Work Phone: Ketones Ql (U) 5(TRACE) Abnormal NEGATIVE [facility] Work Phone: Leukocyte esterase Test strip Ql (U) Negative NEGATIVE [facility] Work Phone: [phone] pH (U) 6.0 [pH] 5.0 - 8.0 [facility] Work Phone: Protein (U) [Mass/Vol] Negative NEGATIVE [facility] Work Phone: RBC (U) [#/Vol] Negative NEGATIVE [facility] Work Phone: Specific gravity (U) [Rel density] 1.047 1 above high threshold See Below [facility] Work Phone: [phone] Comment on above: Reference Range: 1.0 05 - 1.035 Urinalysis Negative NEGATIVE [facility] Work Phone: Urinalysis <2.0 0.0 - 1.9 [facility] Work Phone: Urinalysis CLEAR CLEAR [facility] Work Phone: [phone] Vital Signs Date Time Vital Sign Value Performing Clinician Facility 08-12-2024 12:49-0500 Body height 177.8 cm Tim Mccauley [employer] Work Phone: [facility] 08-12-2024 12:49-0500 Body mass index (BMI) [Ratio] 39.89 kg/m2 Tim Mccauley [employer] Work Phone: [facility] 08-12-2024 12:49-0500 Body temperature 96.8 [degF] Tim Mccauley [employer] Work Phone: [facility] 08-12-2024 12:49-0500 Body weight 126.1 kg Tim Mccauley [employer] Work Phone: [facility] 08-12-2024 12:49-0500 Diastolic blood pressure 104 mm[Hg] Tim Mccauley [employer] Work Phone: [facility] 08-12-2024 12:49-0500 Heart rate 82 /min Tim Mccauley [employer] Work Phone: [facility] 08-12-2024 12:49-0500 SaO2% (BldA) [Mass fraction] 97 % Tim Mccauley [employer] Work Phone: [facility] 08-12-2024 12:49-0500 Systolic blood pressure 141 mm[Hg] Tim Mccauley [employer] Work Phone: [facility] 04-28-2022 15:20-0400 Body height 177.8 cm Agueda Bedoya Miedel Work Phone: [facility] Work Phone: 04-28-2022 15:20-0400 Body mass index (BMI) [Ratio] 39.89 kg/m2 Agueda E Miedel Work Phone: [facility] Work Phone: 04-28-2022 15:20-0400 Body surface area Derived from formula 2.4 m2 Agueda E Miedel Work Phone: [facility] Work Phone: 04-28-2022 15:20-0400 Body weight 126.1 kg Agueda E Miedel Work Phone: [facility] Work Phone: 04-28-2022 15:20-0400 Diastolic blood pressure 88 mm[Hg] Agueda E Miedel Work Phone: [facility] Work Phone: 04-28-2022 15:20-0400 Heart rate 80 /min Agueda E Miedel Work Phone: [facility] Work Phone: 04-28-2022 15:20-0400 Systolic blood pressure 122 mm[Hg] Agueda E Miedel Work Phone: [facility] Work Phone: 04-11-2022 13:54-0400 Body height 177.8 cm Agueda E Miedel Work Phone: [facility] Work Phone: 04-11-2022 13:54-0400 Body mass index (BMI) [Ratio] 39.92 kg/m2 Agueda E Miedel Work Phone: [facility] Work Phone: 04-11-2022 13:54-0400 Body surface area Derived from formula 2.4 m2 Agueda E Miedel Work Phone: [facility] Work Phone: 04-11-2022 13:54-0400 Body weight 126.21 kg Agueda E Miedel Work Phone: [facility] Work Phone: 04-11-2022 13:54-0400 Diastolic blood pressure 74 mm[Hg] Agueda E Miedel Work Phone: [facility] Work Phone: 04-11-2022 13:54-0400 Heart rate 72 /min Agueda E Miedel Work Phone: [facility] Work Phone: 04-11-2022 13:54-0400 Systolic blood pressure 118 mm[Hg] Agueda E Miedel Work Phone: [facility] Work Phone: 04-04-2022 06:30-0400 Diastolic blood pressure 98 mm[Hg] Agueda Miedel Other Phone: [facility] 04-04-2022 06:30-0400 Heart rate 74 /min Agueda Minury Other Phone: [facility] 04-04-2022 06:30-0400 Respiratory rate 18 /min Agueda Edmund Other Phone: [facility] 04-04-2022 06:30-0400 SaO2% (BldA) [Mass fraction] 95 % Agueda Minury Other Phone: [facility] 04-04-2022 06:30-0400 Systolic blood pressure 133 mm[Hg] Agueda Rosenury Other Phone: [facility] 04-04-2022 04:19-0400 Body height 177.8 cm Aguedathiago Johnson Other Phone: [facility] 04-04-2022 04:19-0400 Body temperature 97.52 [degF] Agueda Rosenury Other Phone: [facility] 04-04-2022 04:19-0400 Body weight 115 kg Agueda Blanknatty Other Phone: [facility] Encounters Encounter Date Encounter Type Care Provider Facility Start: 02-28-2025 ambulatory Agueda Johnson Facility: [facility] Start: 12-19-2024 Encounter for genera l adult medical examination without abnormal findings Agueda Johnson [facility] Start: 12-14-2024 End: 12-14-[address] Agueda Johnson MD Work Phone: [facility] Work Phone: Start: 12-14-2024 End: 12-14-[address] Agueda Johnson MD -Laboratory Work Phone: Start: 12-14-2024 End: 12-14-2024 ambulatory Agueda Johnson Facility:[facility] Start: 08-12-2024 End: 08-12-2024 Patient encounter procedure Tim Mccauley [employer] Work Phone: [facility] Comment on above: Acute upper respirat ory infection (Primary Dx); Sore throat Start: 08-12-2024 End: 08-12-2024 ambulatory AGUEDA JOHNSON [facility] Start: 01-03-2024 End: 01-03-2024 ambulatory [facility] Work Phone: Start: 01-03-2024 End: 01-03-2024 Patient encounter procedure [facility] Work Phone: Start: 11-02-2023 End: 11-02-2023 ambulatory [facility] Work Phone: Start: 11-02-2023 End: 11-02-2023 Patient encounter procedure [facility], [place] [facility] Start: 10-29-2022 End: 10-29-2022 ambulatory [facility] Work Phone: Start: 10-29-2022 End: 10-29-2022 Patient encounter procedure [facility] Start: 10-26-2022 End: 10-26-2022 ambulatory [facility] Work Phone: Start: 10-26-2022 End: 10-26-2022 Patient encounter procedure [facility]Laboratory, Specimen Start: 06-16-[address] Agueda Johnson Facility:[id number] Start: 06-07-2022 Chart Update Agueda aviles Work Phone: [facility] Work Phone: Start: 06-01-2022 End: 06-01-[address] Gloria Pizano Facility:[id number] Start: 06-01-2022 Chart Update Agueda aviles Work Phone: [facility] Work Phone: Start: 04-28-2022 Office outpatient vi sit 25 minutes Agueda Johnson Work Phone: [facility] Work Phone: Start: 04-28-2022 ambulatory GLORIA CHASITYSHOBHA Facility:[id number] Start: 04-15-2022 Chart Update Agueda aviles Work Phone: [facility] Work Phone: Start: 04-13-[address] Agueda barboza Miedel Facility:[id number] Start: 04-11-2022 Office consultation new/estab patient 60 min Agueda Johnson Work Phone: [facility] Work Phone: Start: 04-11-2022 ambulatory GLORIA CHASITYJUANITOGaby Facility:[id number] Start: 04-04-2022 End: 04-04-2022 Emergency department patient visit Tristan Clarke [facility] Emergency 09 Procedures Date Procedure Procedure Detail Performing Clinician Start: 08-12-2024 Iadna streptococcus group a amplified probe tq Tim Mccauley [employer] Work Phone: Start: 01-03-2024 Screening mammography Plan of Treatment Date Care Activity Detail Author Start: 12-24-2033 Zoster Vaccines (1 of 2) Zoste r Vaccines (1 of 2) [facility] Start: 11-14-2030 DTaP/Tdap/Td Vaccine s (4 - Td or Tdap) DTaP/Tdap/Td Vaccines (4 - Td or Tdap) [facility] Start: 05-26-2024 COVID-19 Vaccine ( season) COVID-19 Vaccine ( season) [facility] Start: 05-26-2024 Influenza vaccination Influenza Vacc ine (#1) [facility] Start: 2023 Screening for malign ant neoplasm of breast Mammogram [facility] Start: 06-16-2022 POV, Provider: Gloria Pizano, Status: Pen, Time: 9:15 AM POV, Provider: Gloria Pizano, Status: Pen, Time: 9:15 AM [facility] Work Phone: Start: 04-28-2022 FUV, Provider: Gloria Pizano, Status: Pen, Time: 3:30 PM FUV, Provider: Gloria Pizano, Status: Pen, Time: 3:30 PM [facility] Work Phone: Start: 12-24-2004 Screening for malign ant neoplasm of cervix [facility] Start: 12-24-2002 Hepatitis B Vaccines (1 of 3 - 19+ 3-dose series) Hepatitis B Vaccines (1 of 3 - 19+ 3-dose series) [facility] Start: 12-24-2001 Hepatitis C screening Hepatitis C Sc [facility] Start: 12-24-1996 Varicella vaccination Varicell a Vaccines (1 of 2 - 13+ 2-dose series) [facility] Start: 12-24-1984 MMR Vaccines (1 of 1 - Standard series) MMR Vaccines (1 of 1 - Standard series) [facility] Start: 1985 HIV screening HIV Screening [facility] Start: 1983 Lipid panel Lipid Panel [facility] Start: 1985 Yearly Adult Physical Yearly Adult P hysical [facility] Immunizations Immunization Date Immunization Notes Care Provider Jimmy sanchez 09-11-2022 influenza virus vaccine, unspecified formulation Tim Mccauley INSURANCE AUDITOR-CONCERT PROMOTER Work Phone: [facility] Work Phone: Payers Date Payer Category Payer Self-pay [id number] 2022 Blue Cross Blue Shie ld Managed Care [facility] [id number] 2022 Unknown [id number] 1983 Unknown [id number]. [id number] 1983 Unknown [id number]. 2.356 1983 Unknown [id number]. 2.356 1983 Unknown [id number]. 2.9 1983 Unknown [id number] [id number]. 2.1069 1983 Unknown [id number]. 2.1069 1983 Unknown [id number] [id number]. 2.1243 Unknown Unknown [id number] Unknown [id number] [id number]. 2.462 Unknown [id number]. 2.462 Social History Date Type Detail Facility [facility] Tobacco smoking consumption unknown [facility] Consumes alcohol Consumes alcohol [facility] Work Phone: Start: 1985 Sex Assigned At Female [facility] Start: 1985 Sex assigned at Not on file [facility] Work Phone: Gender identity Not on file [facility] Work Phone: Start: 08-02-2024 End: 08-12-2024 Exposure to SARS-CoV-2 (event) Not sure [facility] Start: 12-19-2024 Sex Female (finding) Minerva mendoza [facility] Clinical Notes 08-30-2021 to 08-12-2024 Tim Mccauley, INSURANCE AUDITOR-CONCERT PROMOTER - 08/12/2024 12:45 PM EST Note Date & Type Note Facility 08-12-2024 History of Present illness Narrative 38 y.o. female presents for evaluation of nasal congestion, sore throat, right ear pain, cough and chest congestion for the past 4 days. Denies fever, chest pains, shortness of breath, body aches, nausea, vomiting, diarrhea or any other associated symptom or complaint. No OTC meds symptom management. No known ill contacts. No other complaints. Vitals: 08/12/24 1249 BP: (!) 141/104 Pulse: 82 Temp: 36 C (96.8 F) SpO2: 97% No Known Allergies Medication Documentation Review Audit Reviewed by Gabby Whalne MA (Fourth Grade Teacher) on 08/12/24 at 1248 Medication Order Taking? Sig Documenting Provider Last Dose Status levothyroxine (Synthroid, Levoxyl) 75 mcg tablet [id number] Take 1 tablet (75 mcg) by mouth once daily. take on an empty stomach Historical Provider, Active Past Medical History: Diagnosis Date Personal history of other endocrine, nutritional and metabolic disease History of hypothyroidism Past Surgical History: Procedure Laterality Date OTHER SURGICAL HISTORY 06/16/2022 Cholecystectomy laparoscopic ROS See HPI Physical Exam Vitals and nursing note reviewed. Constitutional: Appearance: She is ill-appearing (Mildly). HENT: Head: Normocephalic and atraumatic. Right Ear: Tympanic membrane and ear canal normal. Left Ear: Tympanic membrane and ear canal normal. Nose: Congestion present. Mouth/Throat: Mouth: Mucous membranes are moist. Pharynx: No oropharyngeal exudate or posterior oropharyngeal erythema. Comments: Hoarse voice Eyes: Extraocular Movements: Extraocular movements intact. Conjunctiva/sclera: Conjunctivae normal. Pupils: Pupils are equal, round, and reactive to light. Cardiovascular: Rate and Rhythm: Normal rate. Pulmonary: Effort: Pulmonary effort is normal. Breath sounds: Normal breath sounds. Lymphadenopathy: Cervical: Cervical adenopathy present. Skin: General: Skin is warm and dry. Neurological: General: No focal deficit present. Mental Status: She is alert and oriented to person, place, and time. Psychiatric: Mood and Affect: Mood normal. Behavior: Behavior normal. Recent Results (from the past hour) POCT Group A Streptococcus, PCR manually resulted Collection Time: 08/12/24 1:34 PM Result Value Ref Range POC Group A Strep, PCR Not Detected Not Detected Assessment/Plan/MDM Claritza was seen today for uri. Diagnoses and all orders for this visit: Acute upper respiratory infection (Primary) - methylPREDNISolone (Medrol Dospak) 4 mg tablets; Take as directed on package. Sore throat - POCT Group A Streptococcus, PCR manually resulted Encouraged pt to use otc cold remedies PRN, push PO fluids and rest. Patient's clinical presentation is otherwise unremarkable at this time. Patient is discharged with instructions to follow-up with primary care or seek emergency medical attention for worsening symptoms or any new concerns. I did personally review Claritza's past medical history, surgical history, social history, as well as family history (when relevant). In this case, I also oversaw the her drug management by reviewing her medication list, allergy list, as well as the medications that I prescribed during the UC course and/or recommended as an out-patient (including possible OTC medications such as acetaminophen, NSAIDs , etc). After reviewing the items above, I did look at previous medical documentation, such as recent hospitalizations, office visits, and/or recent consultations with PCP/specialist. SDOH: Another factor that I considered in Claritza's care was her Social Determinants of Health (SDOH). During this UC encounter, she did not have social determinants of health. Those SDOH influencing Claritza's care are: none Tim Mccauley CNP [facility] [phone] documented in this encounter [facility] Work Phone: 10-26-2022 Note [facility] Pap Smear Specimen Adequacy October 26, 2022 9:12am Comment . Satisfactory for evaluation. Endocervical and/or squamous metaplasticcells (endocervical component) are present. Comment on above: Satisfactory for mayra luation. Endocervical and/or squamous metaplasticcells (endocervical component) are present. 10-26-2022 Note [facility] Pap Smear Specimen Adequacy October 26, 2022 9:12am Comment . Satisfactory for evaluation. Endocervical and/or squamous metaplasticcells (endocervical component) are present. Comment on above: Satisfactory for mayra luation. Endocervical and/or squamous metaplasticcells (endocervical component) are present. 06-01-2022 Note Post Operative Note: PreOp Diagnosis: Symptomatic cholelithiasis Post-Procedure Diagnosis: Symptomatic cholelithiasis, cholecystitis Procedure: Laparoscopic cholecystectomy Surgeon: Gloria Pizano Resident/Fellow/Other Cubing Machine Tender: Anesthesia: General Estimated Blood Loss (mL): 30cc Specimen: yes. Gallbladder Complications: None Findings: Cholelithiasis. Evidence of previous cholecystitis. Large, fatty liver with relatively intrahepatic gallbladder. Patient Returned To/Condition: PACU / Stable Operative Report Dictated: Dictation: not applicable - note contains Operative Report Operative Report: Indication: Patient is a 36-year-old female with symptomatic cholelithiasis. She had a single episode of severe right upper quadrant abdominal pain after eating Lao food about 2 months ago. Imaging showed gallstones but no acute inflammation at that time. Risks and benefits of cholecystectomy were discussed and the patient was agreeable to proceed with surgery. Procedure: The patient was brought to the operating room and placed in supine position. General anesthesia was induced. The patient's abdomen was prepped and draped. Through a vertical umbilical incision, a 12mm port was placed using Reena technique. Three 5mm ports were placed in the upper abdomen under direct visualization. The patient was placed in reverse Trendelenburg position and tilted slightly towards the left. The gallbladder had omentum adherent to it consistent with previous inflammation. The gallbladder was grasped by the fundus and retracted cephalad. Adhesions to the infundibulum were taken down with combination of blunt dissection and electrocautery. The wall was thin in the infundibulum where she had stones visible and palpable. This portion was dilated. She had a large, fatty liver and the gallbladder was relatively intrahepatic, and I suspect that the weight of the liver contributed to this focal dilation of the infundibulum. The peritoneum was opened to separate the gallbladder neck from the liver. When grasping the infundibulum, the thin wall of the gallbladder tore with spillage of bile. This was evacuated with suction and gallbladder decompressed. The cystic duct and artery were dissected. She had inflammatory adhesions and dissection was slow and tedious until it was clear that the artery and cystic duct clearly entered the gallbladder with liver plate visible behind and no additional structures entering the gallbladder. The cystic duct and artery were clipped, with two clips proximally and one clip distally, and divided. The gallbladder was removed from the hepatic bed using electrocautery. Hemostasis was obtained with cautery. The camera was changed to a 5mm scope. The gallbladder was placed in an Endocatch bag and removed via the umbilical port. Wilfrido was applied to the hepatic bed. The 5mm ports were removed. The fascial defect at the umbilicus was closed with 0-Vicryl. 5mm port site incisions were closed with 4-0 Vicryl and steri strips. The skin at the umbilical incision was closed with 3-0 Vicryl deep dermal sutures as the weight of her excess subcutaneous fat was pulling the incision open with attempt at closure with 4-0 Vicryl. The patient tolerated the procedure well, was extubated and transferred to PACU in stable condition. Electronic Signatures: Gloria Pizano) (Signed 01-Jun-2022 11:47) Authored: Post Operative Note, Note Completion Last Updated: 01-Jun-2022 11:47 by Gloria Pizano) [facility] 06-01-2022 Note History of Present I llness: /Lactating: Are You no Are You Currently Breastfeedingno History Present Illness: Reason for surgery: symptomatic cholelithiasis HPI: Ms. Gan and is a 36-year-old female who I previously evaluated on 04/11/2022 for right upper quadrant abdominal pain. This was a single episode of pain after eating Lao food that lasted for approximately 5 hours. She had normal labs, including T bili 0.4. She has since had a right upper quadrant ultrasound that confirms the presence of gallstones. She had no pericholecystic fluid or wall thickening. No biliary dilation, CBD measured 2 mm. She had mild fatty changes of the liver. She is morbidly obese with BMI 40, but no previous abdominal surgery. She has not had any recurrent episodes since I last evaluated her. She denies any issues with diarrhea. She denies any yellowing of the skin or eyes or dark-colored urine. Allergies: Allergies: No Known Allergies: Home Medication Review: Home Medications Reviewed: yes Impression/Procedure: Impression and Planned Procedure: Ms. Forde is a 36-year-old female with symptomatic cholelithiasis. Risks, benefits and alternatives of laparoscopic cholecystectomy were discussed with the patient. This included risk of bleeding, infection, viscous injury, conversion to an open procedure, bile leakage or bile duct injury, post-cholecystectomy diarrhea, and possible need for subsequent endoscopic or surgical interventions. The patient was agreeable to proceed with surgery and is scheduled for laparoscopic cholecystectomy on 06/01/22. ERAS (Enhanced Recovery After Surgery): ERAS Patient: no Physical Exam by System: Constitutional: No acute distress, conversant and pleasant Eyes: PERRL ENMT: mucous membranes moist Head/Neck: Grossly normal. Respiratory/Thorax: No labored breathing Cardiovascular: NSR Gastrointestinal: soft, nondistended, obese with BMI 40, nontender, no Thompson's sign, no surgical scars Extremities: normal extremities, no edema Neurological: alert and oriented x3 Lymphatic: No significant lymphadenopathy Psychological: Appropriate mood and behavior Skin: Warm and dry Consent: COVID-19 Consent: COVID-19 Risk ConsentSurgeon has reviewed youngblood risks related to the risk of fredy COVID-19 and if they contract COVID-19 what the risks are. Electronic Signatures: Gloria Pizano) (Signed 01-Jun-2022 06:46) Authored: History of Present Illness, Allergies, Home Medication Review, Impression/Procedure, ERAS, Physical Exam, Consent, Note Completion Last Updated: 01-Jun-2022 06:46 by Gloria Pizano) [facility] 04-11-2022 History of Present illness Narrative Ms. Gan and is a 36-year-old female who I previously evaluated on 04/11/2022 for right upper quadrant abdominal pain. This was a single episode of pain after eating Lao food that lasted for approximately 5 hours. She had normal labs, including T bili 0.4. She has since had a right upper quadrant ultrasound that confirms the presence of gallstones. She had no pericholecystic fluid or wall thickening. No biliary dilation, CBD measured 2 mm. She had mild fatty changes of the liver. She is morbidly obese with BMI 40, but no previous abdominal surgery. She has not had any recurrent episodes since I last evaluated her. She denies any issues with diarrhea. She denies any yellowing of the skin or eyes or dark-colored urine. [facility] Work Phone: 04-04-2022 History of Present illness Narrative Ms. Forde is a 36-year-old female seen in follow-up from recent emergency department visit on 04/04/22 for right upper quadrant abdominal pain. Pain began at about 9:30 PM after eating Lao food for dinner. She had associated nausea and vomiting. She felt febrile, but did not measure a fever and denied any sweats or chills. The pain lasted approximately 5 hours before easing off. She had some residual soreness in the upper abdomen that she states felt more like muscle pain from repeated vomiting. She denies any yellowing of the skin or eyes or dark-colored urine. She denies any similar episodes prior to this. CT scan showed a dilated gallbladder, but no pericholecystic fluid or acute inflammation. There were no calcified stones visible on scan. She had no alternative etiology of the abdominal pain identified on the CT scan. Her labs were all within normal limits, including T bili 0.4. She is morbidly obese and has hypothyroidism. She has no previous abdominal surgery. [facility] Work Phone: 04-04-2022 History of Present illness Narrative Ms. Forde is a 36-year-old female seen in follow-up from recent emergency department visit on 04/04/22 for right upper quadrant abdominal pain. Pain began at about 9:30 PM after eating Lao food for dinner. She had associated nausea and vomiting. She felt febrile, but did not measure a fever and denied any sweats or chills. The pain lasted approximately 5 hours before easing off. She had some residual soreness in the upper abdomen that she states felt more like muscle pain from repeated vomiting. She denies any yellowing of the skin or eyes or dark-colored urine. She denies any similar episodes prior to this. CT scan showed a dilated gallbladder, but no pericholecystic fluid or acute inflammation. There were no calcified stones visible on scan. She had no alternative etiology of the abdominal pain identified on the CT scan. Her labs were all within normal limits, including T bili 0.4. She is morbidly obese and has hypothyroidism. She has no previous abdominal surgery. [facility] Work Phone: 09-20-2021 Note HNO ID: [id number] Author: Allyn De La Fuente OD Service: ? Author Type: COMMUNICATIONS ADVISOR Type: Progress Notes Filed: 09/20/2021 9:31 AM Note Text: ASSESSMENT/PLAN: 1. Hyperopia of both eyes - ICD9: 367.0, ICD10: H52.03 (primary diagnosis) 2. 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 If she continues to have discomfort, I recommended keeping a journal of the headaches and try to come up with a pattern. Recommended yearly exams. Allyn De La Fuente OD [facility] 08-30-2021 Note Patient Outreach (NE TNAV) CLARITZA FORDE ([id number]) 1985 F Date Time Provider Department 08/30/21 FLAKO BARKLEY During your visit today, we recorded the following information about you: Flako Barkley Population Health Navigator 08/30/2021 9:52 AM Signed POPULATION HEALTH NAVIGATION OUTREACH Action/ I spoke with patient and see another pcp outside of the clinic No care everywhere Contact made with patient or family member? YES Pt identified by name and : YES Outreach Outcome/Action Spoke to patient or caregiver: PCP confirmed / updated Patient declined Reason for Outreach Attribution: Provider Off-boarding Payer: Payor: ANTONIA / Plan: BLUE ACCESS PPO / Product Type: PPO / Care Gap Reviewed:: Reminder: Reminder note to check Health Maintenance for items below Health Maintenance items due: COVID-19 VACCINE(1) Never done ANNUAL PCP TEAM CHRONIC DISEASE VISIT Never done HEPATITIS C SCREENING Never done HIV SCREENING Never done DEPRESSION SCREENING due on 05/28/2020 INFLUENZA(1) due on 05/26/2021 Advanced Directives Completed: Have you ever planned for future healthcare decisions with a power of corporate attorney, living will, or advance directives? No. Please bring a copy to your next appointment or email to [email or web address] Referrals: N/A Message Sent to Practice: NO Navigation Signature: Flako Barkley Population Health Navigator August 30, 2021 9:51 AM Allergies As of Date: 08/30/2021 (No Known Allergies) Date Reviewed: 11/14/2020 Reviewed by: Rebecca Benedict (Merchandise For Resale Purchasing Agent) ANJEL Hughes - Fully Assessed Reason for Visit: Population Health Navigation Outreach [3910] Cmt: Offboarding Prescriptions as of 08/30/2021 - levothyroxine (SYNTHROID) 75 mcg tablet TAKE ONE TABLET BY MOUTH ONCE DAILY (TAKE ON AN EMPTY STOMACH) Problem List As Of Date 08/30/2021 Noted Resolved Routine Gynecological Examination [Z01.419] 05/31/2006 01/16/2013 Migraine, unspecified, without mention of intra*05/31/2006 01/16/2013 Obesity, unspecified [E66.9] 05/31/2006 01/16/2013 Thyrotoxicosis without mention of goiter or oth*01/02/2008 03/14/2014 Abnormal FSH level [E34.9] 04/12/2013 Morbid obesity (HCC) [E66.01] 04/10/2015 Acquired hypothyroidism [E03.9] 04/15/2015 Hyperopia [H52.00] 09/07/2015 Encounter Status:Closed by [facility] FLAKO AGARWAL on 08/30/21 [facility] 08-30-2021 Note HNO ID: [id number] Author: Flako Santacruz Health Navigmario Service: ? Author Type: ? Type: Progress Notes Filed: 08/30/2021 9:52 AM Note Text: POPULATION HEALTH NAVIGATION OUTREACH Action/FYI I spoke with patient and see another pcp outside of the clinic No care everywhere Contact made with patient or family member? YES Pt identified by name and : YES Outreach Outcome/Action Spoke to patient or caregiver: PCP confirmed / updated Patient declined Reason for Outreach Attribution: Provider Off-boarding Payer: Payor: ANTONIA / Plan: BLUE ACCESS PPO / Product Type: PPO / Care Gap Reviewed:: Reminder: Reminder note to check Health Maintenance for items below Health Maintenance items due: COVID-19 VACCINE(1) Never done ANNUAL PCP TEAM CHRONIC DISEASE VISIT Never done HEPATITIS C SCREENING Never done HIV SCREENING Never done DEPRESSION SCREENING due on 05/28/2020 INFLUENZA(1) due on 05/26/2021 Advanced Directives Completed: Have you ever planned for future healthcare decisions with a power of corporate attorney, living will, or advance directives? No. Please bring a copy to your next appointment or email to [email or web address] Referrals: N/A Message Sent to Practice: NO Navigation Signature: Flako Barkley Population Health Navigator August 30, 2021 9:51 AM [facility] Evaluation note No assessment inform ation available [facility] Work Phone: Evaluation note Diagnosis Acute upper respiratory infection- Primary Acute upper respiratory infections of unspecified site Sore throat Acute pharyngitis documented in this encounter [facility] Work Phone: Reason for referral (narrative)No reason for referral information [facility] Work Phone: Summary Purpose Family History No Family History Records FoundNo Family History Records FoundNo Family History Records FoundNo Family History Records FoundNo Family History Records FoundNo Family History Records Found Advance Directives No Advanced Directives Records FoundNo Advanced Directives Records FoundNo Advanced Directives Records FoundNo Advanced Directives Records FoundNo Advanced Directives Records FoundNo Advanced Directives Records Found Chief Complaint Right upper quadrant abdominal painRight upper quadrant abdominal painRight upper quadrant abdominal pain Chief Complaint and Reason for Visit Chief Complaint SCREENING Additional Source Comments INFORMATION SOURCE (unrecogn ized section and content) DATE CREATED AUTHOR 11/15/2021 [facility] DATE CREATED AUTHOR AUTHOR'S ORGANIZ ATION 06/26/2022 [facility] DATE CREATED AUTHOR AUTHOR'S ORGANIZ ATION 06/26/2022 [facility] DATE CREATED AUTHOR AUTHOR'S ORGANIZ ATION 12/26/2022 [facility] DATE CREATED AUTHOR AUTHOR'S ORGANIZ ATION 08/14/2024 [facility] DATE CREATED AUTHOR AUTHOR'S ORGANIZ ATION 02/26/2025 [facility] <item> Privacy Markings (unrecogniz ed section and content) Section Author: Aracely Velazquez PROHIBITION ON REDISCLOSURE OF CONFIDENTIAL INFORMATION This notice accompanies a disclosure of information concerning a client made to you with the consent of such client. Care Teams (unrecognized sec tion and content) Team Status: Active Member Role Status Dates Dr. Agueda Johnson MD Primary Care Provider Active Team Status: Inactive Member Role Status Dates Dr. Agueda Johnson MD Primary Care Provider, Attendin g Provider Active Team Status: Active Member Role Status Dates Dr. Agueda Johnson MD Primary Care Provider, Attendin g Provider Active Team Status: Inactive Member Role Status Dates Dr. Agueda Johnson MD Primary Care Prov ider, Attending Provider, Referring Provider Active Granite Polisher Machine Relationship Specialty Start Date End Date Agueda Johnson MD [facility] [place] [id number] PCP - General Family Medicine 08/12/24 Team Status: Inactive Member Role Status Dates Dr. Agueda Johnson MD Primary Care Provider Active Start: December 14, 2024 End: December 14, 2024 Dr. Agueda Johnson MD Attending Provider Active Start: December 14, 2024 End: December 14, 2024 Goals (unrecognized section and content) Goals may be documented in a n alternate sectionGoals may be documented in an alternate sectionGoals may be documented in an alternate sectionGoals may be documented in an alternate sectionGoals may be documented in an alternate section Reason for Visit (unrecogniz ed section and content) Reason Comments URI Sinus congestion, so re throat, right ear pain, cough, chest congestion X 4 days FOR RECORDS PERTAINING TO PATIENTS WHO ARE OR HAVE BEEN ENROLLED IN A CHEMICAL DEPENDENCY/SUBSTANCEABUSE PROGRAM, SOME INFORMATION MAY BE OMITTED. This clinical summary was aggregated from multiple sources. Caution should be exercised in using it in the provision of clinical care. This summary normalizes information from multiple sources, and as a consequence, information in this document may materially change the coding, format and clinical context of patient data. In addition, data may be omitted in some cases. CLINICAL DECISIONS SHOULD BE BASED ON THE PRIMARY CLINICAL RECORDS. [facility] [employer] [facility]. provides no warranty or guarantee of the accuracy or completeness of information in this document.
== END | disposition home or self-care (01) ==
LOC: OPBI 07:07
PROVIDERS: PCP Family Medicine; Referring Provider Family Medicine; Visit Provider Family Medicine
DX: Z12.31 Encounter for screening mammogram for malignant neoplasm of breast (principal)
CPT/HCPCS: 77063; 77067